=== PATIENT | male | born 1950 | race Caucasian/White ===

== ENCOUNTER 2016-10-16 13:24 | Emergency (ER) | payer OTHER ==
[~2016-10-16] VITALS: Ht 180.3 cm; Wt 70.3 kg
[~2016-10-16 13:24] MED LIST: AMBIEN10 M1 PO; AMBIEN10 MG PO; ASPIRIN81 M2 PO; AURALGAN 14 ML14 ML OT; CARDURA2 MG PO; CARVEDILOL6.25 MG PO; COGENTIN PO; COGENTIN1 MG PO; DARVOCET A500 51 TAB PO; DEPAKOTE500 M1 PO; EFFEXOR XR75 MG PO; FLEXERIL10 M1 PO; HALDOL5 M1 PO; HALDOL5 MG PO; HYDROCODONE BIT1 T43 PO; KLONOPIN1 M1 PO; KLONOPIN1 MG PO; MOTRIN600 M2 PO; NEURONTIN300 MG PO; SEROQUEL200 MG PO; SEROQUEL400 MG PO; SINGULAIR10 MG PO; TRAMADOL50 MG PO; WELLBUTRIN XL300 MG PO; WELLBUTRIN100 MG PO
[2016-10-16 13:38] VITALS: BP 93/69
--- NOTE | 2016-10-16 14:00 | NUR ---
PT AMBULATED TO BED 3.
--- NOTE | 2016-10-16 14:05 | NUR ---
PATIENT PRESENTS TO ED WITH C/O GERARD LEG PAIN . PT STATES THE PAIN STARTED 1 MONTH AGO AND HAS NOT DISSIPATED. PT DENIES ANY RECENT FALL OR TRAUMA. HX ASTHMA . DENIES N/V/D; SKIN IS PINK/WARM/DRY; AAOX4 WITH EVEN AND STEADY GAIT; LUNGS CLEAR BL; HR EVEN AND REGULAR; PT DENIES ANY FEVER, CP, SOB, OR COUGH AT THIS TIME; PATIENT STATES PAIN OF 7/10 AT THIS TIME; VSS; PATIENT POSITIONED FOR COMFORT; HOB ELEVATED; BEDRAILS UP X2; BED DOWN. ER MD MADE AWARE OF PT STATUS.
--- NOTE | 2016-10-16 14:45 | NUR ---
Jered AT BEDSIDE.
[2016-10-16] MEDS ORDERED: KETOROLAC 60 MG/2 ML VIAL IM ONE (15:20)
--- NOTE | 2016-10-16 15:32 | NUR ---
MEDICATION ADMINISTERED ORDERED.
[2016-10-16 16:24] VITALS: BP 103/74
== END 2016-10-16 16:25 | disposition home or self-care (01) ==
LOC: MED 13:24
DX: M25.562 Pain in left knee (principal); M25.561 Pain in right knee; J45.909 Unspecified asthma, uncomplicated
CPT/HCPCS: 96372; 99283; J1885

== ENCOUNTER 2017-10-20 01:15 | Emergency (ER) | payer OTHER ==
[~2017-10-20] VITALS: Ht 180.3 cm; Wt 68.0 kg
[~2017-10-20 01:15] MED LIST changes: -AMBIEN10 M1 PO; -AMBIEN10 MG PO; +ASPI-1271 PO; -ASPIRIN81 M2 PO; -AURALGAN 14 ML14 ML OT; -CARDURA2 MG PO; +CARV6.252 PO; -CARVEDILOL6.25 MG PO; -COGENTIN PO; -COGENTIN1 MG PO; -DARVOCET A500 51 TAB PO; -DEPAKOTE500 M1 PO; -EFFEXOR XR75 MG PO; -FLEXERIL10 M1 PO; -HALDOL5 M1 PO; -HALDOL5 MG PO; -HYDROCODONE BIT1 T43 PO; -KLONOPIN1 M1 PO; -KLONOPIN1 MG PO; -MOTRIN600 M2 PO; -NEURONTIN300 MG PO; -SEROQUEL200 MG PO; -SEROQUEL400 MG PO; -SINGULAIR10 MG PO; -TRAMADOL50 MG PO; -WELLBUTRIN XL300 MG PO; -WELLBUTRIN100 MG PO
--- NOTE | 2017-10-20 01:15 | NUR ---
0111- PT JONNY BARROSOS. TAKEN TO BED 2
[2017-10-20 01:17] VITALS: BP 137/81
--- NOTE | 2017-10-20 01:25 | NUR ---
PT.URINATES 1000ML
--- NOTE | 2017-10-20 01:33 | NUR ---
Dr. Murillo evaluating patient.
--- NOTE | 2017-10-20 01:36 | NUR ---
67Y/M PT. BIBA TO ED FROM [facility] WITH C/O EPISODE OF ANXIETY. PT. STATES HAD NIGHTMARE AND FOUND HIM SELF ON THE FLOOR. HX. ASTHMA, HTN, SCHIZOPRENIA. AAO X4, UNABLE TO AMBULATED AT THIS TIME. RESPIRATIONS RA, EVEN AND UNLABORED, BL LUNG CLEAR. SKIN WARM AND DRY, NO APPARENT INJURY. PT. STATES BAD ROBLES 03/06. VSS, ER MADE AWARE OF PT. STATUS.
[2017-10-20] MEDS ORDERED: ACETAMINOPHEN 325 MG TAB PO ONE (01:50)
--- NOTE | 2017-10-20 03:00 | NUR ---
Patient appears to be resting comfortably in bed. Vital Signs within normal limits. Respirations even and unlabored.
--- NOTE | 2017-10-20 03:37 | NUR ---
Patient discharged with v/s stable. Written and verbal after care instructions given and explained. Patient alert, oriented and verbalized understanding of instructions. Ambulatory with steady gait. All questions addressed prior to discharge. ID band removed. Patient advised to follow up with PMD. Rx of KEFLEX 500 MG given. Patient educated on indication of medication including possible reaction and side effects. Opportunity to ask questions provided and answered.
[2017-10-20 03:40] VITALS: BP 128/78
== END 2017-10-20 03:37 | disposition home or self-care (01) ==
LOC: MED 01:15
DX: S09.90XA Unspecified injury of head, initial encounter (principal); N39.0 Urinary tract infection, site not specified; J45.909 Unspecified asthma, uncomplicated; Z79.899 Other long term (current) drug therapy; W06.XXXA Fall from bed, initial encounter; Y93.89 Activity, other specified; Y92.89 Other specified places as the place of occurrence of the external cause; Y99.8 Other external cause status
CPT/HCPCS: 70450; 81002; 99284

== ENCOUNTER 2017-11-24 05:15 | Inpatient (IN) | payer OTHER ==
[~2017-11-24] VITALS: Ht 180.3 cm; Wt 68.0 kg
--- NOTE | 2017-11-24 05:15 | NUR ---
BIBA TO ER BED 4
--- NOTE | 2017-11-24 05:15 | NUR ---
67/M BIBA W C/O SOB AND PRODUCTIVE COUGH X5 DAYS. PT ARRIVED ON NRB MASK SATS 99%. PT ABLE TO SPEAK AT FULL LENGTH WITHOUT DIFFICULTIES, DENIES CP. ALL LUNG SOUNDS CBTA BUT DIMINSHED AT BASES, 18RR EVEN AND UNLABORED AT THIS TIME. HOB ELEVATED. PMH: SCHIZOAFFECTIVE, CHILDHOOD ASTHMA, REPORTS TO HAVE BEEN TAKING ROBITUSSIN WITHOUT RELIEF. Addendum: 11/24/17 at 0540 by CLARISSE DENIES FEVER/CHILLS
[2017-11-24 05:22] VITALS: BP 125/70
[2017-11-24 05:39] LABS: BASOPHILS # (AUTO) 0.1 K/uL (0.00-0.22); BASOPHILS % (AUTO) 0.8 % (0.0-2.0)
[2017-11-24 05:43] LABS: EOSINOPHILS # (AUTO) 0.2 K/uL (0-0.4); EOSINOPHILS % (AUTO) 1.2 % (0.0-4.0); HEMATOCRIT 32.2 % (36-52); HEMOGLOBIN 10.4 g/dL (12.0-18.0); LYMPHOCYTES # (AUTO) 1.5 K/uL (2.0-11.5); LYMPHOCYTES % (AUTO) 10.3 % (20.5-51.1); MEAN CORPUSCULAR HEMOGLOBIN 29 pg (27-31); MEAN CORPUSCULAR HGB CONC 32 g/dL (33-37); MEAN CORPUSCULAR VOLUME 88.2 fL (80-94); MONOCYTES # (AUTO) 0.9 K/uL (0.8-1.0); NEUTROPHILS # (AUTO) 11.8 K/uL (1.8-7.7); NEUTROPHILS % (AUTO) 81.7 % (42.2-75.2); PLATELET COUNT (AUTO) 635 K/uL (140-450); RED BLOOD CELL COUNT(AUTO) 3.65 MIL/uL (4.20-6.10); RED CELL DISTRIBUTION WIDTH 15.3 % (11.6-13.7)
[2017-11-24] MEDS ORDERED: ALBUTEROL SULFATE/IPRATROPIU 3 ML SOL IH ONE (05:50)
[2017-11-24 06:00] LABS: ANION GAP 10.8 (8-16); CARBON DIOXIDE 29.5 mmol/L (21-32); CREATININE 0.9 mg/dL (0.7-1.3); POTASSIUM 4.3 mmol/L (3.5-5.1); TOTAL BILIRUBIN 0.3 mg/dL (0.0-1.0); WHITE BLOOD COUNT (AUTO) 14.4 K/uL (4.8-10.8)
[2017-11-24 06:01] LABS: ALBUMIN 2.6 g/dL (3.4-5.0)
[2017-11-24] MEDS ORDERED: VANCOMYCIN 1,000 MG in DEXTROSE 5% 250 ML IV ONE (06:45)
[2017-11-24] MEDS ORDERED: LEVOFLOXACIN 750 MG/D5W PREMIX 150 ML IV ONE (06:45)
[2017-11-24] MEDS ORDERED: VANCOMYCIN 1,000 MG VIAL ONE (06:53)
--- NOTE | 2017-11-24 07:14 | NUR ---
Pt report given to FIDE GOMEZ. Transfer of care at this time.
--- NOTE | 2017-11-24 07:15 | NUR ---
RECEIVED REPORT FROM JASON MANZANO. PT. IN BED RESTING COMFORTABLY, RR EVEN AND UNLABORED, AAOX4. PROVIDED WATER AND A JUICE. UNABLE TO PROVIDE URINE AT THIS TIME. WILL CONTINUE TO MONITOR.
[2017-11-24] MEDS ORDERED: ONDANSETRON 4 MG/2 ML VIAL IVP PRN (08:00)
[2017-11-24] MEDS ORDERED: HYDROcodone/APAP 5/325 MG 1 TAB TAB PO PRN (08:00)
[2017-11-24] MEDS ORDERED: ACETAMINOPHEN 325 MG TAB PO PRN (08:00)
[2017-11-24] MEDS ORDERED: ALBUTEROL 0.083% 2.5 MG/3 ML NEBU IH PRN (08:00)
[2017-11-24] MEDS ORDERED: MORPHINE SULFATE 4 MG/ML SYR IVP ONE (08:30)
--- NOTE | 2017-11-24 09:05 | NUR ---
Patient will be admitted to care of [facility] . Admited to MED/ SURG . Will go to room 119 B . Belongings list completed. Report to JASON REGALADO .
--- NOTE | 2017-11-24 09:30 | NUR ---
PT ADMITTED TO [facility]. BEDSIDE REPORT GIVEN BY ER NURSE FIDE. PT IS AWAKE AND ORIENTED X4. INTRODUCED SELF AND UPDATED BOARD. PT ABLE TO STATED PAST MEDICAL HX. DENIES CARDIAC DISORDERS. STATED CHILDHOOD ASTHMA AND HE HAS SCHIZOAFFECTIVE DISORDER. STATED HE LIVES AT [facility]. LUNG SOUNDS DIMINISHED ON ANTERIOR AND POSTERIOR. O2 SAT 97% ON RA. PT WITH NON-PRODUCTIVE COUGH. STATED HE COUGHED CLEAR PHLEGM WITH SALIVA BEFORE HE WAS BROUGHT IN. NO SOB. NO SIGNS OF DISTRESS. PT DENIES PAIN. SKIN INTACT. ORIENTED PT TO CALL LIGHT AND BATHROOM. VERBALIZED UNDERSTANDING. CALL LIGHT WITHIN REACH. BED IN LOW POSITION, WHEELS LOCKED. WILL CONTINUE TO MONITOR.
[2017-11-24 10:21] VITALS: BP 120/70
[2017-11-24] MEDS: ECOTRIN 81 MG TABEC PO SCH (10:45)
[2017-11-24] MEDS: CARVEDILOL 6.25 MG TAB PO SCH ×2 (10:45→21:18)
[2017-11-24] MEDS: ENOXAPARIN 40 MG/0.4 ML SYR SUBQ SCH (10:46)
[2017-11-24] MEDS: LACTATED RINGERS 1,000 ML IV SCH ×2 (10:53→21:18)
--- NOTE | 2017-11-24 11:26 | NUR ---
PATIENT HAS BEEN SCREENED AND CATEGORIZED LOW NUTRITION RISK. PATIENT WILL BE SEEN WITHIN 7 DAYS OF ADMISSION. 12/01/[address]
--- NOTE | 2017-11-24 12:30 | NUR ---
CHECKED ON PT IN ROOM. SLEEPING WITH VISIBLE RESPIRATIONS. NO SIGNS OF DISTRESS. CALL LIGHT WITHIN REACH. BED IN LOW POSITION. WILL CONTINUE TO MONITOR.
[2017-11-24] MEDS: HYDROcodone/APAP 5/325 MG 1 TAB TAB PO PRN (15:57)
[2017-11-24 16:00] VITALS: BP 135/70
--- NOTE | 2017-11-24 16:00 | NUR ---
PT ADMINISTERED NORCO AT THIS TIME. PT COMPLAINED OF RT.SIDE CHEST PAIN DUE TO COUGHING. DRY COUGHING. MEDICATED WITH NORCO AT THIS TIME. WILL CONTINUE TO MONITOR. PT STABLE. SAFETY MEASURE IN PLACE. CALL LIGHT WITHIN PT'S REACH WILL REASSESS PAIN.
[2017-11-24 16:04] LABS: APPEARANCE,URINE CLEAR (CLEAR); BILIRUBIN,URINE NEGATIVE (NEGATIVE); BLOOD, URINE NEGATIVE (NEGATIVE); COLOR,URINE YELLOW (YELLOW); LEUKOCYTE ESTERASE ,URINE NEGATIVE (NEGATIVE); NITRITE, URINE POSITIVE (NEGATIVE); UGLUCOSE NEGATIVE (NEGATIVE)
[2017-11-24 16:14] LABS: BARBITURATE, URINE NEG. ng/ml (NEG <=200); BENZODIAZEPINE, URINE NEG. ng/mL (NEG <=200); CANNABINOID, URINE NEG. ng/mL (NEG <=50); COCAINE, URINE NEG. ng/mL (NEG <=300); OPIATE, URINE POS. ng/mL (NEG <=2000); PHENCYCLIDINE SCREEN,URINE NEG. ng/mL (NEG <=25)
[2017-11-24 16:15] LABS: RBC,URINE 0-5 (RARE) /HPF (0-5); WBC,URINE 6-15 (FEW) /HPF (0-5)
--- NOTE | 2017-11-24 18:00 | NUR ---
PT GETTING LIVER US DONE BY TECH. SIGNED CONSENT FORM FOR CT OF ABD/PELVIS AND CT CHEST WITH CONTRAST. PT VERBALIZED UNDERSTANDING. WILL CONTINUE TO MONITOR.
--- NOTE | 2017-11-24 19:25 | NUR ---
ENDORSED PT TO RESEARCH AND DEVELOPMENT MANAGER NURSE JOYA AT BEDSIDE FOR CONTINUITY OF CARE. PT IN STABLE CONDITION.
--- NOTE | 2017-11-24 19:30 | NUR ---
RECEIVED PT ON BED, AAOX4, VITAL SIGNS STABLE, DENIES ANY PAIN, ON O2 AT 3L/NC, UNABLE TO COLLECT SPUTUM AT THIS TIME, NON-PRODUCTIVE COUGH NOTED, MAINTAINED ON NPO FOR CT CHEST AND ABDOMEN TONIGHT, IVF INFUSING WELL, SAFETY MEASURES IN PLACE, CALL LIGHT WITHIN REACH.
[2017-11-25] VITALS: BP 123/72
--- NOTE | 2017-11-25 | NUR ---
PT SLEEPING, NASAL CANNULA NOT IN PLACE, VITAL SIGNS STABLE, SAT-92%, PUT BACK ON O2 AT 3L, SAT WENT BACK TO 98%, IVF INFUSING WELL, INSTRUCTED NPO AFTER MIDNIGHT, CONTINUE TO MONITOR CLOSELY.
--- NOTE | 2017-11-25 02:43 | NUR ---
ACCIDENTALLY PULLED OUT IV LINE WITH CANNULA INTACT, NEW IV LINE STARTED AT RT AC #20, RESUMED IVF, MAINTAINED ON NPO AFTER MIDNIGHT FOR CT CHEST AND ABDOMEN IN AM, MONITORED CLOSELY.
--- NOTE | 2017-11-25 06:00 | NUR ---
PT SLEEPING, EASILY AROUSABLE, NO SIGNS OF PAIN OR SOB NOTED, IVF INFUSING WELL, MAINTAINED ON NPO, AWARE TO COLLECT SPUTUM FOR TEST, SPECIMEN CONTAINER AT BEDSIDE.
[2017-11-25] MEDS: LACTATED RINGERS 1,000 ML IV SCH ×3 (06:52→23:58)
--- NOTE | 2017-11-25 07:20 | NUR ---
RECEIVED PATIENT REPORT AT BEDSIDE. PATIENT AWAKE, ALERT AND ORIENTED. PATIENT ON ROOM AIR. NO SOB. PATIENT COUGHS INTERMITTENTLY. PATIENT GIVEN A SAMPLE CUP FOR SPUTUM COLLECTION. FALL PRECAUTIONS IN PLACE. WILL CONTINUE TO MONITOR
--- NOTE | 2017-11-25 07:20 | NUR ---
PT AWAKE, NO SIGNS OF DISTRESS, REPORT GIVEN TO JASON LIVE FOR CONTINUITY OF CARE.
[2017-11-25 08:00] VITALS: BP 133/76
[2017-11-25 09:43] LABS: BASOPHILS # (AUTO) 0.1 K/uL (0.00-0.22); BASOPHILS % (AUTO) 0.8 % (0.0-2.0); EOSINOPHILS # (AUTO) 0.1 K/uL (0-0.4); EOSINOPHILS % (AUTO) 0.9 % (0.0-4.0); HEMATOCRIT 32.5 % (36-52); HEMOGLOBIN 10.8 g/dL (12.0-18.0); LYMPHOCYTES # (AUTO) 1.5 K/uL (2.0-11.5); LYMPHOCYTES % (AUTO) 12.3 % (20.5-51.1); MEAN CORPUSCULAR HEMOGLOBIN 29 pg (27-31); MEAN CORPUSCULAR HGB CONC 33 g/dL (33-37); MEAN CORPUSCULAR VOLUME 88.1 fL (80-94); MONOCYTES # (AUTO) 0.7 K/uL (0.8-1.0); MONOCYTES % (AUTO) 5.9 % (1.7-9.3); NEUTROPHILS # (AUTO) 9.7 K/uL (1.8-7.7); NEUTROPHILS % (AUTO) 80.1 % (42.2-75.2); PLATELET COUNT (AUTO) 718 K/uL (140-450); RED BLOOD CELL COUNT(AUTO) 3.68 MIL/uL (4.20-6.10); RED CELL DISTRIBUTION WIDTH 15.1 % (11.6-13.7); WHITE BLOOD COUNT (AUTO) 12.2 K/uL (4.8-10.8)
[2017-11-25 10:14] LABS: ALBUMIN 2.4 g/dL (3.4-5.0); ANION GAP 10.6 (8-16); CARBON DIOXIDE 29.2 mmol/L (21-32); CREATININE 0.7 mg/dL (0.7-1.3); POTASSIUM 3.8 mmol/L (3.5-5.1); TOTAL BILIRUBIN 0.2 mg/dL (0.0-1.0)
[2017-11-25] MEDS: LEVOFLOXACIN 750 MG/D5W PREMIX 150 ML IV SCH (10:26)
[2017-11-25] MEDS: CARVEDILOL 6.25 MG TAB PO SCH ×2 (10:29→20:33)
[2017-11-25] MEDS: ECOTRIN 81 MG TABEC PO SCH (10:29)
--- NOTE | 2017-11-25 10:29 | NUR ---
ADMINISTERED SCHEDULED MEDICATIONS. PATIENT TOLERATED WELL
[2017-11-25] MEDS: ENOXAPARIN 40 MG/0.4 ML SYR SUBQ SCH (10:32)
--- NOTE | 2017-11-25 13:33 | NUR ---
PT WAS INSTRUCTED ON GIVING A SPUTUM SAMPLE AT THIS TIME HE IS UNABLE TO GIVE ONE I RETRY LATER
--- NOTE | 2017-11-25 14:20 | NUR ---
PATIENT AWAKE IN BED, WATCHING TELEVISION. NO S/S OF DISTRESS NOTED
[2017-11-25 16:00] VITALS: BP 157/87
[2017-11-25] MEDS: HYDROcodone/APAP 5/325 MG 1 TAB TAB PO PRN (17:44)
--- NOTE | 2017-11-25 18:30 | NUR ---
PATIENT IV PULLED OUT. NEW IV LINE INSERTED ON THE RIGHT FOREARM 22 GAUGE. IV LINE WRAPPED WITH SANTOS. PATIENT INSTRUCTED TO KEEP THE IV LINE IN PLACE.
--- NOTE | 2017-11-25 19:21 | NUR ---
PATIENT REPORT GIVEN AT BEDSIDE. PATIENT ENDORSED IN STABLE CONDITION
--- NOTE | 2017-11-25 19:22 | NUR ---
RECEIVED PT AWAKE ON BED EATING DINNER, NO SIGNS OF PAIN OR SOB NOTED, NOTED IV LINE OUT, CANNULA INTACT, PT DENIES PULLING IT OUT, NO BLEEDING TO SITE NOTED, WILL RESTART A NEW IV LINE, SAFETY MEASURES IN PLACE, CALL LIGHT WITHIN REACH.
--- NOTE | 2017-11-25 20:40 | NUR ---
DR LEE CAME IN TO SEE PT FOR INFECTIOUS DS CONSULT, NO NEW ORDER AT THIS TIME, NEW IV LINE INSERTED AT RT FA, IVF INFUSING WELL.
[2017-11-26] VITALS: BP 129/93
--- NOTE | 2017-11-26 | NUR ---
PT SLEEPING, EASILY AROUSABLE, VITAL SIGNS STABLE, DENIES ANY PAIN, NO SOB NOTED, IVF INFUSING WELL, CONTINUE TO MONITOR CLOSELY.
--- NOTE | 2017-11-26 04:00 | NUR ---
ROUNDS MADE, PT SLEEPING, NO SIGNS OF DISTRESS, MONITORED CLOSELY.
--- NOTE | 2017-11-26 07:20 | NUR ---
PT AWAKE, NO SIGNS OF DISTRESS, REPORT GIVEN TO JASON GRULLON FOR CONTINUITY OF CARE.
--- NOTE | 2017-11-26 07:25 | NUR ---
RECEIVED PT FROM GROUP EXERCISE CLASS INSTRUCTOR NURSE, PT IS AWAKE AND LYING ON THE BED WITH AN IV LINE AT RIGHT FOREARM G. 22, WITH LR RUNNING AT 75ML/HR. PT IS STABLE AND NO SIGN OF DISTRESS NOTED.
[2017-11-26 08:00] VITALS: BP 161/92
--- NOTE | 2017-11-26 08:05 | NUR ---
PT IS AWAKE AND VITAL SIGNS TAKEN, NO SIGN OF DISTRESS NOTED. WILL MONITOR.
--- NOTE | 2017-11-26 08:46 | NUR ---
DISCHARGE ORDER WAS PLACED BY DR. ROQUE FOR THE PT. ACKNOWLEDGED ORDER AND WILL FACILITATE DISCHARGE.
[2017-11-26] MEDS ORDERED: LEVO750T2 PO (08:47)
--- NOTE | 2017-11-26 09:00 | NUR ---
PT IS AWAKE AND LYING ON THE BED, IV FLUIDS STARTED AND MEDICATIONS GIVEN VIA IV PIGGY BACK. PT TOLERATED MEDICATION. WILL MONITOR.
[2017-11-26 09:44] LABS: BASOPHILS # (AUTO) 0.1 K/uL (0.00-0.22); BASOPHILS % (AUTO) 0.6 % (0.0-2.0); EOSINOPHILS # (AUTO) 0.1 K/uL (0-0.4); EOSINOPHILS % (AUTO) 0.8 % (0.0-4.0); HEMATOCRIT 32.4 % (36-52); HEMOGLOBIN 10.7 g/dL (12.0-18.0); LYMPHOCYTES # (AUTO) 1.5 K/uL (2.0-11.5); LYMPHOCYTES % (AUTO) 12.1 % (20.5-51.1); MEAN CORPUSCULAR HEMOGLOBIN 29 pg (27-31); MEAN CORPUSCULAR HGB CONC 33 g/dL (33-37); MEAN CORPUSCULAR VOLUME 87.5 fL (80-94); MONOCYTES # (AUTO) 0.7 K/uL (0.8-1.0); MONOCYTES % (AUTO) 5.3 % (1.7-9.3); NEUTROPHILS # (AUTO) 10.4 K/uL (1.8-7.7); NEUTROPHILS % (AUTO) 81.2 % (42.2-75.2); RED CELL DISTRIBUTION WIDTH 15.1 % (11.6-13.7); WHITE BLOOD COUNT (AUTO) 12.8 K/uL (4.8-10.8)
[2017-11-26] MEDS: CARVEDILOL 6.25 MG TAB PO SCH (09:45)
[2017-11-26] MEDS: ECOTRIN 81 MG TABEC PO SCH (09:45)
[2017-11-26] MEDS: ENOXAPARIN 40 MG/0.4 ML SYR SUBQ SCH (09:51)
[2017-11-26 09:53] LABS: PLATELET COUNT (AUTO) 746 K/uL (140-450)
[2017-11-26] MEDS: LEVOFLOXACIN 750 MG/D5W PREMIX 150 ML IV SCH (10:15)
[2017-11-26] MEDS: LACTATED RINGERS 1,000 ML IV SCH (10:15)
[2017-11-26 10:53] LABS: ALBUMIN 2.4 g/dL (3.4-5.0); ANION GAP 12.8 (8-16); CARBON DIOXIDE 27.6 mmol/L (21-32); CREATININE 0.7 mg/dL (0.7-1.3); POTASSIUM 4.4 mmol/L (3.5-5.1); TOTAL BILIRUBIN 0.3 mg/dL (0.0-1.0)
--- NOTE | 2017-11-26 12:11 | NUR ---
CALLED [facility] AND SPOKE TO GENEVIEVE REGARDING THE DISCHARGE OF THE PT. GENEVIEVE SAID THAT [facility] WILL BE THE ONE TO CODING TECHNICIAN THE PT AT AROUND 1500H TODAY AND WILL BE GOING BACK TO [facility]..
[2017-11-26] MEDS: HYDROcodone/APAP 5/325 MG 1 TAB TAB PO PRN (12:32)
[2017-11-26 15:08] LABS: HEPATITIS B SURFACE ANTIBODY Non Reactive (.)
--- NOTE | 2017-11-26 16:35 | NUR ---
DISCHARGED PT VIA WHEELCHAIR WITH TRANSPORT, IV LINE AND ARM BAND REMOVED. PT IS STABLE AT THIS TIME
== END 2017-11-26 16:35 | disposition home or self-care (01) | DRG 193 ==
LOC: MED 05:15 → MMU 07:58 → MTU 08:45
PROVIDERS: ADMIT Hospitalist; ATTEND Hospitalist
DX: J18.9 Pneumonia, unspecified organism (principal); J96.00 Acute respiratory failure, unspecified whether with hypoxia or hypercapnia; E43 Unspecified severe protein-calorie malnutrition; R78.81 Bacteremia; E88.09 Other disorders of plasma-protein metabolism, not elsewhere classified; R74.0 Nonspecific elevation of levels of transaminase and lactic acid dehydrogenase [LDH]; F20.9 Schizophrenia, unspecified; Z87.891 Personal history of nicotine dependence; K76.0 Fatty (change of) liver, not elsewhere classified; Z79.82 Long term (current) use of aspirin
CPT/HCPCS: 36415; 71045; 71270; 76705; 80053; 80305; 81001; 85025; 86704; 86706; 86803; 87040; 87070; 87081; 87086; 87186; 87205; 87340; 94640; 99285; J1650; J1956; J2270; J3370; J7030; J7120; J7620; Q0092; Q9967

== ENCOUNTER 2018-03-29 08:07 | Emergency (ER) | payer OTHER, MEDICAID ==
[~2018-03-29] VITALS: Ht 180.3 cm; Wt 67.1 kg
[~2018-03-29 08:07] MED LIST changes: +LEVO750T2 PO
[2018-03-29 08:16] VITALS: BP 117/65
--- NOTE | 2018-03-29 08:22 | NUR ---
Patient transferred to bed 5 via wheelchair by tech. RN evaluating patient at bedside.
--- NOTE | 2018-03-29 08:24 | NUR ---
AAO PT BEING EVALUATED BY DR NGUYEN AT BEDSIDE
--- NOTE | 2018-03-29 08:27 | NUR ---
C/O LT RIB PAIN WITH SOB S/P TRIP AND FALL ON THE SIDEWALK YESTERDAY; DENIES ALOC, ABRASIONS NOTED ON LT ELBOW, LT LATERAL KNEE WITH DIFFICULTY AMBULATING HX; DENIES RX; DENIES
[2018-03-29] MEDS ORDERED: NEOMYCIN/POLYMYXIN/BACITRACIN 0.9 GM/1 PKT TP ONE (08:30)
[2018-03-29] MEDS ORDERED: KETOROLAC 60 MG/2 ML VIAL IM ONE (08:30)
[2018-03-29] MEDS ORDERED: ACETAMINOPHEN EXTRA STRENGTH 500 MG TAB PO ONE (08:30)
--- NOTE | 2018-03-29 08:49 | NUR ---
RAD AT BEDSIDE
--- NOTE | 2018-03-29 09:12 | NUR ---
TALK TO ELROY AT [facility] FOR PICKUP; PER ELROY PT WILL BE PICKUP WITHIN AN HOUR, PT NOTIFIED, JUICE AND CRAKER PROVIDED.
[2018-03-29 09:35] VITALS: BP 122/57
--- NOTE | 2018-03-29 09:35 | NUR ---
Patient discharged with v/s stable. Written and verbal after care instructions given and explained. Patient alert, oriented and verbalized understanding of instructions. Wheel Chair Assisted with to car. All questions addressed prior to discharge. ID band removed. Patient advised to follow up with PMD. Rx of Ibuprofen given. Patient educated on indication of medication including possible reaction and side effects. Opportunity to ask questions provided and answered.
== END 2018-03-29 09:35 | disposition home or self-care (01) ==
LOC: MED 08:07
DX: S20.212A Contusion of left front wall of thorax, initial encounter (principal); S80.212A Abrasion, left knee, initial encounter; J45.909 Unspecified asthma, uncomplicated; Z79.899 Other long term (current) drug therapy; W18.39XA Other fall on same level, initial encounter; Y93.89 Activity, other specified; Y92.89 Other specified places as the place of occurrence of the external cause; Y99.8 Other external cause status
CPT/HCPCS: 71045; 90471; 90715; 96372; 99284; J1885

== ENCOUNTER 2018-06-21 09:32 | Emergency (ER) | payer OTHER ==
[~2018-06-21] VITALS: Ht 162.6 cm; Wt 67.6 kg
[2018-06-21 09:45] VITALS: BP 127/77
--- NOTE | 2018-06-21 09:45 | NUR ---
PT AMBULATES TO BED 3
--- NOTE | 2018-06-21 10:04 | NUR ---
C/O INTERMITTETN RT CHEST RADIATING TO RLQ PAIN X 1 WK; DENIES N/V/D, OR DIZZINESS . DENIES N/V/D; SKIN IS PINK/WARM/DRY; AAOX4 WITH EVEN AND STEADY GAIT; LUNGS CLEAR BL; HR EVEN AND REGULAR; PT DENIES ANY FEVER, SOB, OR COUGH AT THIS TIME; PATIENT STATES PAIN OF 8/10 AT THIS TIME; VSS; PATIENT POSITIONED FOR COMFORT; HOB ELEVATED; BEDRAILS UP X2; BED DOWN. ER MD MADE AWARE OF PT STATUS.
--- NOTE | 2018-06-21 10:26 | NUR ---
DR. LOGAN AT BEDSIDE TO ASSESS PT.
[2018-06-21 10:29] LABS: HEMATOCRIT 27.6 % (36-52); HEMOGLOBIN 9.2 g/dL (12.0-18.0); MEAN CORPUSCULAR HEMOGLOBIN 30 pg (27-31); MEAN CORPUSCULAR HGB CONC 33 g/dL (33-37); MEAN CORPUSCULAR VOLUME 90.2 fL (80-94); PLATELET COUNT (AUTO) 338 K/uL (140-450); RED BLOOD CELL COUNT(AUTO) 3.06 MIL/uL (4.20-6.10); RED CELL DISTRIBUTION WIDTH 12.5 % (11.6-13.7); WHITE BLOOD COUNT (AUTO) 17.4 K/uL (4.8-10.8)
[2018-06-21] MEDS ORDERED: ACETAMINOPHEN EXTRA STRENGTH 500 MG TAB PO ONE (10:30)
--- NOTE | 2018-06-21 10:31 | NUR ---
XRAY AT BEDSIDE
[2018-06-21 10:39] LABS: ANION GAP 11.5 (8-16); CARBON DIOXIDE 25.3 mmol/L (21-32); CREATININE 0.8 mg/dL (0.7-1.3); POTASSIUM 3.8 mmol/L (3.5-5.1)
[2018-06-21 10:45] LABS: ALBUMIN 2.7 g/dL (3.4-5.0); TOTAL BILIRUBIN 0.3 mg/dL (0.0-1.0)
[2018-06-21 10:46] LABS: BASOPHILS % (MANUAL) 0 % (0-2); EOSINOPHILS % (MANUAL) 0 % (0-4); LYMPHOCYTES % (MANUAL) 6 % (20-46); MONOCYTES % (MANUAL) 9 % (5-12)
[2018-06-21 11:15] VITALS: BP 125/75
--- NOTE | 2018-06-21 11:16 | NUR ---
Patient discharged with v/s stable. Written and verbal after care instructions given and explained. Patient alert, oriented and verbalized understanding of instructions. Ambulatory with steady gait. All questions addressed prior to discharge. ID band removed. Patient advised to follow up with PMD. Rx of TESSALON AND AZITHROMYCIN given. Patient educated on indication of medication including possible reaction and side effects. Opportunity to ask questions provided and answered.
== END 2018-06-21 11:16 | disposition home or self-care (01) ==
LOC: MED 09:32
DX: J18.9 Pneumonia, unspecified organism (principal); J45.909 Unspecified asthma, uncomplicated; Z90.89 Acquired absence of other organs; Z79.899 Other long term (current) drug therapy; Z79.82 Long term (current) use of aspirin
CPT/HCPCS: 36415; 71045; 80053; 82550; 82553; 84484; 85025; 99284

== ENCOUNTER 2018-08-09 05:53 | Inpatient (IN) | payer OTHER ==
[~2018-08-09] VITALS: Ht 180.3 cm; Wt 72.6 kg
[2018-08-09 06:05] VITALS: BP 91/50
[2018-08-09] MEDS ORDERED: NACL 0.9% 1,000 ML IV ONE ×3 (06:10→06:55)
[2018-08-09] MEDS ORDERED: ASPIRIN 325 MG TAB PO ONE (06:40)
[2018-08-09] MEDS ORDERED: MORPHINE SULFATE 4 MG/ML SYR IVP ONE (06:40)
[2018-08-09 06:54] LABS: BASOPHILS % (AUTO) 0.2 % (0.0-2.0); EOSINOPHILS # (AUTO) 0.1 K/uL (0-0.4); EOSINOPHILS % (AUTO) 0.6 % (0.0-4.0); HEMATOCRIT 29.9 % (36-52); HEMOGLOBIN 9.9 g/dL (12.0-18.0); LYMPHOCYTES # (AUTO) 0.9 K/uL (2.0-11.5); LYMPHOCYTES % (AUTO) 6.2 % (20.5-51.1); MEAN CORPUSCULAR HEMOGLOBIN 30 pg (27-31); MEAN CORPUSCULAR HGB CONC 33 g/dL (33-37); MEAN CORPUSCULAR VOLUME 91.1 fL (80-94); MONOCYTES # (AUTO) 1.3 K/uL (0.8-1.0); MONOCYTES % (AUTO) 8.8 % (1.7-9.3); NEUTROPHILS # (AUTO) 12.4 K/uL (1.8-7.7); NEUTROPHILS % (AUTO) 84.2 % (42.2-75.2); PLATELET COUNT (AUTO) 202 K/uL (140-450); RED BLOOD CELL COUNT(AUTO) 3.28 MIL/uL (4.20-6.10); RED CELL DISTRIBUTION WIDTH 14.1 % (11.6-13.7); WHITE BLOOD COUNT (AUTO) 14.8 K/uL (4.8-10.8)
[2018-08-09 07:13] LABS: ANION GAP 9.5 (8-16); CARBON DIOXIDE 25.4 mmol/L (21-32); CREATININE 1.6 mg/dL (0.7-1.3); POTASSIUM 3.9 mmol/L (3.5-5.1)
[2018-08-09 07:19] LABS: ALBUMIN 2.7 g/dL (3.4-5.0); TOTAL BILIRUBIN 0.3 mg/dL (0.0-1.0)
[2018-08-09] MEDS ORDERED: VANCOMYCIN 1,000 MG in DEXTROSE 5% 250 ML IV ONE (07:20)
[2018-08-09] MEDS ORDERED: ALBUTEROL SULFATE/IPRATROPIU 3 ML SOL IH ONE (07:20)
[2018-08-09] MEDS ORDERED: PIPERACILLIN/TAZOBACTAM 3.375 GM in DEXT 5% MINI-BAG PLUS 50 ML IV ONE (07:20)
[2018-08-09] MEDS ORDERED: DEXAMETHASONE 10 MG/ML VIAL IVP ONE (07:20)
[2018-08-09] MEDS ORDERED: AZITHROMYCIN 500 MG in DEXTROSE 5% 250 ML IV ONE (07:20)
[2018-08-09] MEDS ORDERED: NACL 0.9% 1,000 ML IV SCH (07:20)
[2018-08-09] MEDS ORDERED: VANCOMYCIN 1,000 MG VIAL ONE (08:01)
[2018-08-09] MEDS ORDERED: PIPERACILLIN/TAZOBACTAM 3.375 GM VIAL IV ONE (08:01)
[2018-08-09] MEDS ORDERED: AZITHROMYCIN 500 MG INJ VIAL IV ONE (08:01)
[2018-08-09 08:51] LABS: PROTHROMBIN TIME 11.3 secs (10.8-13.4)
[2018-08-09] MEDS ORDERED: ALBUTEROL SULFATE/IPRATROPIU 3 ML SOL IH PRN (08:55)
[2018-08-09] MEDS ORDERED: ACETAMINOPHEN 325 MG TAB PO PRN (08:55)
[2018-08-09] MEDS ORDERED: DOCUSATE SODIUM 100 MG GELCAP PO PRN (08:55)
[2018-08-09] MEDS ORDERED: ONDANSETRON 4 MG/2 ML VIAL IM/IVP PRN (08:55)
[2018-08-09 10:25] LABS: MAGNESIUM 1.4 mg/dL (1.8-2.4); PHOSPHORUS 3.1 mg/dL (2.5-4.9)
[2018-08-09 10:45] VITALS: BP 118/67
[2018-08-09 10:49] LABS: THYROID STIMULATING HORMONE 0.86 uIU/mL (0.34-3.74)
[2018-08-09] MEDS ORDERED: GABA300C PO (10:50)
[2018-08-09] MEDS ORDERED: IBUP-2213 PO (10:50)
[2018-08-09] MEDS ORDERED: CLON1TAB PO (10:50)
[2018-08-09] MEDS ORDERED: ASPI81CT89 PO (10:50)
[2018-08-09] MEDS ORDERED: DIPH25TA41 PO (10:50)
[2018-08-09] MEDS ORDERED: QUET400T PO (10:50)
[2018-08-09] MEDS ORDERED: LOSA50TA66 PO (10:50)
[2018-08-09] MEDS ORDERED: BUPR-10 PO (10:50)
[2018-08-09] MEDS ORDERED: FERR325E14 PO (10:50)
[2018-08-09] MEDS: HYDROcodone/APAP 5/325 MG 1 TAB TAB PO PRN ×2 (11:11→17:21)
[2018-08-09 11:12] LABS: BARBITURATE, URINE NEG. ng/ml (NEG <=200); BENZODIAZEPINE, URINE NEG. ng/mL (NEG <=200); CANNABINOID, URINE NEG. ng/mL (NEG <=50); COCAINE, URINE NEG. ng/mL (NEG <=300); OPIATE, URINE NEG. ng/mL (NEG <=2000); PHENCYCLIDINE SCREEN,URINE NEG. ng/mL (NEG <=25)
[2018-08-09] MEDS: NACL 0.9% 1,000 ML IV SCH (11:12)
[2018-08-09 11:18] LABS: APPEARANCE,URINE CLEAR (CLEAR); BILIRUBIN,URINE NEGATIVE (NEGATIVE); BLOOD, URINE NEGATIVE (NEGATIVE); COLOR,URINE YELLOW (YELLOW); LEUKOCYTE ESTERASE ,URINE NEGATIVE (NEGATIVE); NITRITE, URINE NEGATIVE (NEGATIVE); UGLUCOSE NEGATIVE (NEGATIVE)
[2018-08-09] MEDS ORDERED: SODIUM FERRIC GLUCONATE 125 MG in NACL 0.9% 100 ML IV SCH (11:30)
[2018-08-09 12:00] VITALS: BP 124/72
[2018-08-09] MEDS ORDERED: PIPERACILLIN/TAZOBACTAM 3.375 GM in DEXTROSE 5% 50 ML IV SCH (12:00)
[2018-08-09] MEDS: ALBUTEROL SULFATE/IPRATROPIU 3 ML SOL IH SCH ×2 (13:54→19:42)
[2018-08-09] MEDS: PIPER/TAZO 3.375GM/D5W PREMIX 50 ML IV SCH ×2 (14:34→21:43)
[2018-08-09 16:00] VITALS: BP 117/68
[2018-08-09 20:00] VITALS: BP 120/78
[2018-08-09] MEDS: FERROUS SULFATE 325 MG TABEC PO SCH (21:43)
[2018-08-09] MEDS: QUEtiapine FUMARATE 100 MG TAB PO SCH (21:44)
[2018-08-09] MEDS: clonazePAM 0.5 MG TAB PO SCH (21:45)
[2018-08-09] MEDS: buPROPion 100 MG TAB PO SCH (21:45)
[2018-08-09] MEDS: GABAPENTIN 300 MG CAP PO SCH (21:46)
[2018-08-09] MEDS: MAGNESIUM OXIDE 400 MG TAB PO SCH (21:46)
[2018-08-09] MEDS: ASCORBIC ACID 500 MG TAB PO SCH (21:52)
[2018-08-10] VITALS: BP 118/76
[2018-08-10] MEDS: PIPER/TAZO 3.375GM/D5W PREMIX 50 ML IV SCH ×4 (02:07→19:49)
[2018-08-10 05:56] VITALS: BP 132/76
[2018-08-10] MEDS: HYDROcodone/APAP 5/325 MG 1 TAB TAB PO PRN ×3 (06:01→19:49)
[2018-08-10 06:20] LABS: HEMATOCRIT 30.4 % (36-52); HEMOGLOBIN 9.9 g/dL (12.0-18.0); LYMPHOCYTES # (AUTO) 0.7 K/uL (2.0-11.5); LYMPHOCYTES % (AUTO) 4.8 % (20.5-51.1); MEAN CORPUSCULAR HEMOGLOBIN 30 pg (27-31); MEAN CORPUSCULAR HGB CONC 33 g/dL (33-37); MEAN CORPUSCULAR VOLUME 91.4 fL (80-94); MONOCYTES # (AUTO) 1.2 K/uL (0.8-1.0); MONOCYTES % (AUTO) 7.9 % (1.7-9.3); NEUTROPHILS # (AUTO) 13.2 K/uL (1.8-7.7); NEUTROPHILS % (AUTO) 87.3 % (42.2-75.2); PLATELET COUNT (AUTO) 233 K/uL (140-450); RED BLOOD CELL COUNT(AUTO) 3.32 MIL/uL (4.20-6.10); RED CELL DISTRIBUTION WIDTH 14.5 % (11.6-13.7); WHITE BLOOD COUNT (AUTO) 15.1 K/uL (4.8-10.8)
[2018-08-10 07:38] LABS: MAGNESIUM 1.6 mg/dL (1.8-2.4); PHOSPHORUS 3.3 mg/dL (2.5-4.9)
[2018-08-10 07:39] LABS: ANION GAP 14.5 (8-16); CARBON DIOXIDE 22.4 mmol/L (21-32); POTASSIUM 3.9 mmol/L (3.5-5.1)
[2018-08-10 08:00] VITALS: BP 143/87
[2018-08-10] MEDS: GABAPENTIN 300 MG CAP PO SCH ×2 (08:24→21:12)
[2018-08-10] MEDS: clonazePAM 0.5 MG TAB PO SCH ×2 (08:24→21:11)
[2018-08-10] MEDS: LACTOBACILLUS RHAMNOSUS GG 1 EACH CAP PO SCH (08:24)
[2018-08-10] MEDS: buPROPion 100 MG TAB PO SCH ×2 (08:25→21:09)
[2018-08-10] MEDS: LOSARTAN 50 MG TAB PO SCH (08:25)
[2018-08-10] MEDS: ASPIRIN 81 MG TAB.CHEW PO SCH (08:26)
[2018-08-10] MEDS: ASCORBIC ACID 500 MG TAB PO SCH ×2 (08:26→21:12)
[2018-08-10] MEDS: FERROUS SULFATE 325 MG TABEC PO SCH ×2 (08:26→21:09)
[2018-08-10] MEDS: MAGNESIUM OXIDE 400 MG TAB PO SCH ×2 (08:27→21:09)
[2018-08-10] MEDS: ALBUTEROL SULFATE/IPRATROPIU 3 ML SOL IH SCH ×3 (08:55→19:19)
[2018-08-10] MEDS ORDERED: VANCOMYCIN PER PHARMACY MC PRN (09:15)
[2018-08-10] MEDS: NACL 0.9% 1,000 ML IV SCH (09:30)
[2018-08-10] MEDS: VANCOMYCIN 1GM/DEXT 5% PREMIX 200 ML IV SCH ×2 (10:35→21:17)
[2018-08-10 12:00] VITALS: BP 121/69
[2018-08-10] MEDS: CHLORHEXADINE GLUC 2% CLOTH TP SCH (13:55)
[2018-08-10] MEDS: MUPIROCIN CA NASAL 2% 1GM TUBE NS SCH (13:55)
[2018-08-10 16:00] VITALS: BP 152/90
[2018-08-10] MEDS ORDERED: FLUTICASONE NASAL 50 MCG/ACTUATION 16 GM BTL NS SCH (16:45)
[2018-08-10 19:54] VITALS: BP 148/89
[2018-08-10] MEDS: QUEtiapine FUMARATE 100 MG TAB PO SCH (21:10)
[2018-08-10] MEDS: guaiFENesin 600 MG TABER PO SCH (21:11)
[2018-08-11 00:44] VITALS: BP 117/81
[2018-08-11] MEDS: PIPER/TAZO 3.375GM/D5W PREMIX 50 ML IV SCH ×4 (01:33→20:45)
[2018-08-11 04:00] VITALS: BP 130/78
[2018-08-11] MEDS: NACL 0.9% 1,000 ML IV SCH (06:39)
[2018-08-11 06:43] LABS: BASOPHILS % (AUTO) 0.3 % (0.0-2.0); EOSINOPHILS # (AUTO) 0.1 K/uL (0-0.4); EOSINOPHILS % (AUTO) 1.2 % (0.0-4.0); HEMATOCRIT 29.2 % (36-52); HEMOGLOBIN 9.7 g/dL (12.0-18.0); LYMPHOCYTES # (AUTO) 1.7 K/uL (2.0-11.5); LYMPHOCYTES % (AUTO) 16.5 % (20.5-51.1); MEAN CORPUSCULAR HEMOGLOBIN 30 pg (27-31); MEAN CORPUSCULAR HGB CONC 33 g/dL (33-37); MEAN CORPUSCULAR VOLUME 91.2 fL (80-94); MONOCYTES % (AUTO) 10.2 % (1.7-9.3); NEUTROPHILS # (AUTO) 7.4 K/uL (1.8-7.7); NEUTROPHILS % (AUTO) 71.8 % (42.2-75.2); PLATELET COUNT (AUTO) 291 K/uL (140-450); RED CELL DISTRIBUTION WIDTH 14.8 % (11.6-13.7); WHITE BLOOD COUNT (AUTO) 10.3 K/uL (4.8-10.8)
[2018-08-11] MEDS ORDERED: MORPHINE SULFATE 4 MG/ML SYR IVP SCH (06:45)
[2018-08-11] MEDS ORDERED: BISACODYL 10 MG SUPP RC SCH (06:45)
[2018-08-11 06:55] LABS: CARBON DIOXIDE 26.7 mmol/L (21-32); POTASSIUM 3.7 mmol/L (3.5-5.1)
[2018-08-11 07:01] LABS: MAGNESIUM 1.2 mg/dL (1.8-2.4); PHOSPHORUS 2.8 mg/dL (2.5-4.9)
[2018-08-11 08:00] VITALS: BP 154/83
[2018-08-11] MEDS: ALBUTEROL SULFATE/IPRATROPIU 3 ML SOL IH SCH ×3 (08:17→20:05)
[2018-08-11 08:23] LABS: FOLIC ACID 7.1 ng/mL (>3.0)
[2018-08-11] MEDS: FLUTICASONE NASAL 50 MCG/ACTUATION 16 GM BTL NS SCH (08:50)
[2018-08-11] MEDS: MAGNESIUM OXIDE 400 MG TAB PO SCH (08:51)
[2018-08-11] MEDS: ASCORBIC ACID 500 MG TAB PO SCH ×2 (08:52→20:56)
[2018-08-11] MEDS: guaiFENesin 600 MG TABER PO SCH ×2 (08:52→20:56)
[2018-08-11] MEDS: LOSARTAN 50 MG TAB PO SCH (08:52)
[2018-08-11] MEDS: LACTOBACILLUS RHAMNOSUS GG 1 EACH CAP PO SCH (08:52)
[2018-08-11] MEDS: ASPIRIN 81 MG TAB.CHEW PO SCH (08:53)
[2018-08-11] MEDS: FERROUS SULFATE 325 MG TABEC PO SCH ×2 (08:53→20:56)
[2018-08-11] MEDS: buPROPion 100 MG TAB PO SCH ×2 (08:53→20:52)
[2018-08-11] MEDS: GABAPENTIN 300 MG CAP PO SCH ×2 (08:54→20:56)
[2018-08-11] MEDS: clonazePAM 0.5 MG TAB PO SCH ×2 (08:57→20:55)
[2018-08-11] MEDS: MAG SULF 2000 MG/WATER PREMIX 100 ML IV SCH ×2 (10:02→11:20)
[2018-08-11 12:00] VITALS: BP 130/75
[2018-08-11] MEDS: VANCOMYCIN 1GM/DEXT 5% PREMIX 200 ML IV SCH ×2 (12:58→22:53)
[2018-08-11] MEDS: CHLORHEXADINE GLUC 2% CLOTH TP SCH (13:49)
[2018-08-11] MEDS: MUPIROCIN CA NASAL 2% 1GM TUBE NS SCH (13:49)
[2018-08-11 16:00] VITALS: BP 143/84
[2018-08-11 20:00] VITALS: BP 136/75
[2018-08-11] MEDS: QUEtiapine FUMARATE 100 MG TAB PO SCH (20:57)
[2018-08-12] VITALS: BP 129/67
[2018-08-12] MEDS: PIPER/TAZO 3.375GM/D5W PREMIX 50 ML IV SCH ×4 (02:00→20:25)
[2018-08-12] MEDS: HYDROcodone/APAP 5/325 MG 1 TAB TAB PO PRN ×2 (03:38→12:37)
[2018-08-12] MEDS: NACL 0.9% 1,000 ML IV SCH (05:30)
[2018-08-12 06:58] LABS: BASOPHILS % (AUTO) 0.3 % (0.0-2.0); EOSINOPHILS # (AUTO) 0.2 K/uL (0-0.4); EOSINOPHILS % (AUTO) 1.8 % (0.0-4.0); HEMATOCRIT 29.3 % (36-52); HEMOGLOBIN 9.8 g/dL (12.0-18.0); LYMPHOCYTES # (AUTO) 1.6 K/uL (2.0-11.5); LYMPHOCYTES % (AUTO) 13.7 % (20.5-51.1); MEAN CORPUSCULAR HEMOGLOBIN 30 pg (27-31); MEAN CORPUSCULAR HGB CONC 33 g/dL (33-37); MEAN CORPUSCULAR VOLUME 90.1 fL (80-94); MONOCYTES % (AUTO) 16.8 % (1.7-9.3); NEUTROPHILS # (AUTO) 7.9 K/uL (1.8-7.7); NEUTROPHILS % (AUTO) 67.4 % (42.2-75.2); PLATELET COUNT (AUTO) 321 K/uL (140-450); RED BLOOD CELL COUNT(AUTO) 3.26 MIL/uL (4.20-6.10); RED CELL DISTRIBUTION WIDTH 14.6 % (11.6-13.7); WHITE BLOOD COUNT (AUTO) 11.8 K/uL (4.8-10.8)
[2018-08-12] MEDS: ALBUTEROL SULFATE/IPRATROPIU 3 ML SOL IH SCH ×3 (07:00→19:00)
[2018-08-12] MEDS ORDERED: BISACODYL 10 MG SUPP RC SCH (07:00)
[2018-08-12] MEDS ORDERED: MORPHINE SULFATE 4 MG/ML SYR IVP SCH (07:15)
[2018-08-12 07:40] LABS: ANION GAP 11.9 (8-16); CARBON DIOXIDE 27.1 mmol/L (21-32); CREATININE 0.8 mg/dL (0.7-1.3)
[2018-08-12 07:52] LABS: MAGNESIUM 1.5 mg/dL (1.8-2.4); PHOSPHORUS 2.9 mg/dL (2.5-4.9)
[2018-08-12 08:00] VITALS: BP 143/86
[2018-08-12] MEDS: LOSARTAN 50 MG TAB PO SCH (08:26)
[2018-08-12] MEDS: guaiFENesin 600 MG TABER PO SCH ×2 (08:26→20:26)
[2018-08-12] MEDS: buPROPion 100 MG TAB PO SCH ×2 (08:27→20:25)
[2018-08-12] MEDS: GABAPENTIN 300 MG CAP PO SCH ×2 (08:27→20:26)
[2018-08-12] MEDS: ASCORBIC ACID 500 MG TAB PO SCH ×2 (08:27→20:25)
[2018-08-12] MEDS: ASPIRIN 81 MG TAB.CHEW PO SCH (08:27)
[2018-08-12] MEDS: LACTOBACILLUS RHAMNOSUS GG 1 EACH CAP PO SCH (08:27)
[2018-08-12] MEDS: FERROUS SULFATE 325 MG TABEC PO SCH ×2 (08:28→20:26)
[2018-08-12] MEDS: clonazePAM 0.5 MG TAB PO SCH ×2 (08:31→20:26)
[2018-08-12] MEDS: FLUTICASONE NASAL 50 MCG/ACTUATION 16 GM BTL NS SCH (08:35)
[2018-08-12] MEDS: SODIUM CHLORIDE 1 GM TAB PO SCH ×2 (09:00→09:23)
[2018-08-12] MEDS ORDERED: MAG SULF 2000 MG/WATER PREMIX 50 ML IV SCH (09:00)
[2018-08-12] MEDS: VANCOMYCIN 1,250 MG in DEXTROSE 5% 250 ML IV SCH ×2 (11:02→21:04)
[2018-08-12] MEDS: MUPIROCIN CA NASAL 2% 1GM TUBE NS SCH (15:06)
[2018-08-12] MEDS: CHLORHEXADINE GLUC 2% CLOTH TP SCH (15:07)
[2018-08-12 16:00] VITALS: BP 156/89
[2018-08-12] MEDS: QUEtiapine FUMARATE 100 MG TAB PO SCH (20:25)
[2018-08-13] VITALS: BP 128/73
[2018-08-13] MEDS: PIPER/TAZO 3.375GM/D5W PREMIX 50 ML IV SCH ×3 (01:14→18:17)
[2018-08-13] MEDS: NACL 0.9% 1,000 ML IV SCH (01:14)
[2018-08-13] MEDS: HYDROcodone/APAP 5/325 MG 1 TAB TAB PO PRN ×4 (02:16→18:17)
[2018-08-13 06:37] LABS: BASOPHILS % (AUTO) 0.4 % (0.0-2.0); EOSINOPHILS # (AUTO) 0.2 K/uL (0-0.4); EOSINOPHILS % (AUTO) 1.5 % (0.0-4.0); HEMATOCRIT 27.8 % (36-52); HEMOGLOBIN 9.3 g/dL (12.0-18.0); LYMPHOCYTES # (AUTO) 1.5 K/uL (2.0-11.5); LYMPHOCYTES % (AUTO) 10.9 % (20.5-51.1); MEAN CORPUSCULAR HEMOGLOBIN 30 pg (27-31); MEAN CORPUSCULAR HGB CONC 33 g/dL (33-37); MEAN CORPUSCULAR VOLUME 90.1 fL (80-94); MONOCYTES # (AUTO) 2.1 K/uL (0.8-1.0); MONOCYTES % (AUTO) 15.2 % (1.7-9.3); NEUTROPHILS # (AUTO) 9.7 K/uL (1.8-7.7); PLATELET COUNT (AUTO) 297 K/uL (140-450); RED BLOOD CELL COUNT(AUTO) 3.08 MIL/uL (4.20-6.10); RED CELL DISTRIBUTION WIDTH 14.3 % (11.6-13.7); WHITE BLOOD COUNT (AUTO) 13.5 K/uL (4.8-10.8)
[2018-08-13] MEDS ORDERED: FUROSEMIDE 40 MG/4 ML VIAL IVP ONE (07:15)
[2018-08-13] MEDS: ALBUTEROL SULFATE/IPRATROPIU 3 ML SOL IH SCH ×3 (07:16→19:00)
[2018-08-13 08:00] VITALS: BP 122/62
[2018-08-13] MEDS ORDERED: FUROSEMIDE 40 MG/4 ML VIAL IVP SCH (08:00)
[2018-08-13] MEDS: ASPIRIN 81 MG TAB.CHEW PO SCH (08:19)
[2018-08-13] MEDS: LACTOBACILLUS RHAMNOSUS GG 1 EACH CAP PO SCH (08:19)
[2018-08-13] MEDS: buPROPion 100 MG TAB PO SCH ×2 (08:19→20:06)
[2018-08-13] MEDS: GABAPENTIN 300 MG CAP PO SCH ×2 (08:19→20:05)
[2018-08-13] MEDS: LOSARTAN 50 MG TAB PO SCH (08:19)
[2018-08-13] MEDS: ASCORBIC ACID 500 MG TAB PO SCH ×2 (08:20→20:05)
[2018-08-13] MEDS: guaiFENesin 600 MG TABER PO SCH ×2 (08:20→20:04)
[2018-08-13] MEDS: FERROUS SULFATE 325 MG TABEC PO SCH ×2 (08:20→20:06)
[2018-08-13] MEDS: FLUTICASONE NASAL 50 MCG/ACTUATION 16 GM BTL NS SCH (08:21)
[2018-08-13] MEDS: clonazePAM 0.5 MG TAB PO SCH ×2 (08:22→20:06)
[2018-08-13] MEDS ORDERED: SODIUM CHLORIDE 1 GM TAB PO SCH (09:00)
[2018-08-13] MEDS: VANCOMYCIN 1,250 MG in DEXTROSE 5% 250 ML IV SCH ×2 (10:04→22:29)
[2018-08-13 10:40] LABS: CARBON DIOXIDE 25.8 mmol/L (21-32); CREATININE 0.8 mg/dL (0.7-1.3); POTASSIUM 3.8 mmol/L (3.5-5.1)
[2018-08-13 10:48] LABS: MAGNESIUM 1.5 mg/dL (1.8-2.4)
[2018-08-13] MEDS: MAG SULF 2000 MG/WATER PREMIX 100 ML IV SCH ×2 (13:16→14:42)
[2018-08-13] MEDS: CHLORHEXADINE GLUC 2% CLOTH TP SCH (13:17)
[2018-08-13] MEDS: MUPIROCIN CA NASAL 2% 1GM TUBE NS SCH (13:17)
[2018-08-13 16:00] VITALS: BP 109/62
[2018-08-13] MEDS: QUEtiapine FUMARATE 100 MG TAB PO SCH (20:04)
[2018-08-13] MEDS: SODIUM CHLORIDE 1 GM TAB PO SCH (20:06)
[2018-08-13] MEDS ORDERED: VANCOMYCIN PER PHARMACY MC PRN (21:20)
[2018-08-14] VITALS: BP 120/64
[2018-08-14] MEDS: NACL 0.9% 1,000 ML IV SCH (01:30)
[2018-08-14] MEDS: HYDROcodone/APAP 5/325 MG 1 TAB TAB PO PRN ×3 (02:01→14:18)
[2018-08-14 05:41] LABS: BASOPHILS % (AUTO) 0.2 % (0.0-2.0); EOSINOPHILS # (AUTO) 0.3 K/uL (0-0.4); EOSINOPHILS % (AUTO) 2.4 % (0.0-4.0); HEMATOCRIT 28.1 % (36-52); HEMOGLOBIN 9.1 g/dL (12.0-18.0); LYMPHOCYTES # (AUTO) 1.8 K/uL (2.0-11.5); MEAN CORPUSCULAR HEMOGLOBIN 30 pg (27-31); MEAN CORPUSCULAR HGB CONC 32 g/dL (33-37); MEAN CORPUSCULAR VOLUME 90.9 fL (80-94); MONOCYTES # (AUTO) 1.8 K/uL (0.8-1.0); NEUTROPHILS # (AUTO) 8.9 K/uL (1.8-7.7); NEUTROPHILS % (AUTO) 69.4 % (42.2-75.2); PLATELET COUNT (AUTO) 325 K/uL (140-450); RED BLOOD CELL COUNT(AUTO) 3.09 MIL/uL (4.20-6.10); RED CELL DISTRIBUTION WIDTH 14.6 % (11.6-13.7); WHITE BLOOD COUNT (AUTO) 12.8 K/uL (4.8-10.8)
[2018-08-14 06:05] LABS: ANION GAP 8.6 (8-16); CREATININE 0.9 mg/dL (0.7-1.3); POTASSIUM 3.6 mmol/L (3.5-5.1)
[2018-08-14 06:08] LABS: MAGNESIUM 1.9 mg/dL (1.8-2.4); PHOSPHORUS 3.2 mg/dL (2.5-4.9)
[2018-08-14] MEDS: ALBUTEROL SULFATE/IPRATROPIU 3 ML SOL IH SCH ×2 (07:13→13:34)
[2018-08-14 08:00] VITALS: BP 139/74
[2018-08-14] MEDS: guaiFENesin 600 MG TABER PO SCH (08:53)
[2018-08-14] MEDS: FERROUS SULFATE 325 MG TABEC PO SCH (08:53)
[2018-08-14] MEDS: LOSARTAN 50 MG TAB PO SCH (08:53)
[2018-08-14] MEDS: FLUTICASONE NASAL 50 MCG/ACTUATION 16 GM BTL NS SCH (08:53)
[2018-08-14] MEDS: ASCORBIC ACID 500 MG TAB PO SCH (08:53)
[2018-08-14] MEDS: GABAPENTIN 300 MG CAP PO SCH (08:54)
[2018-08-14] MEDS: LACTOBACILLUS RHAMNOSUS GG 1 EACH CAP PO SCH (08:54)
[2018-08-14] MEDS: buPROPion 100 MG TAB PO SCH (08:54)
[2018-08-14] MEDS: ASPIRIN 81 MG TAB.CHEW PO SCH (08:55)
[2018-08-14] MEDS: clonazePAM 0.5 MG TAB PO SCH (08:57)
[2018-08-14] MEDS: SODIUM CHLORIDE 1 GM TAB PO SCH (08:59)
[2018-08-14] MEDS ORDERED: VITC500 PO (10:10)
[2018-08-14] MEDS ORDERED: FLONAS NS (10:10)
[2018-08-14] MEDS ORDERED: Vancomycin Per Pharmacy MC (10:10)
[2018-08-14] MEDS ORDERED: LACT10CA PO (10:10)
[2018-08-14] MEDS ORDERED: GUAI-791 PO (10:10)
[2018-08-14] MEDS ORDERED: BACTNA NS (10:10)
[2018-08-14] MEDS ORDERED: DOCU-299 PO (10:10)
[2018-08-14] MEDS ORDERED: ACET-9525 PO (10:10)
[2018-08-14] MEDS ORDERED: CHLO118S2 TP (10:10)
[2018-08-14] MEDS ORDERED: SODI100076 PO (10:10)
[2018-08-14] MEDS: VANCOMYCIN 1,250 MG in DEXTROSE 5% 250 ML IV SCH (10:53)
[2018-08-14] MEDS: MUPIROCIN CA NASAL 2% 1GM TUBE NS SCH (14:02)
[2018-08-14] MEDS: CHLORHEXADINE GLUC 2% CLOTH TP SCH (14:02)
== END 2018-08-14 15:05 | DRG 177 ==
LOC: MED 05:53 → MTU 08:51
PROVIDERS: ADMIT General Practice; ATTEND General Practice
DX: J69.0 Pneumonitis due to inhalation of food and vomit (principal); N17.0 Acute kidney failure with tubular necrosis; E43 Unspecified severe protein-calorie malnutrition; E87.1 Hypo-osmolality and hyponatremia; J90 Pleural effusion, not elsewhere classified; J98.11 Atelectasis; E83.42 Hypomagnesemia; F20.9 Schizophrenia, unspecified; J40 Bronchitis, not specified as acute or chronic; I95.9 Hypotension, unspecified; D72.829 Elevated white blood cell count, unspecified; D64.9 Anemia, unspecified; E83.51 Hypocalcemia; I10 Essential (primary) hypertension; F32.9 Major depressive disorder, single episode, unspecified; K76.0 Fatty (change of) liver, not elsewhere classified; K59.00 Constipation, unspecified; B95.62 Methicillin resistant Staphylococcus aureus infection as the cause of diseases classified elsewhere; I70.0 Atherosclerosis of aorta; Z68.22 Body mass index [BMI] 22.0-22.9, adult; Z87.891 Personal history of nicotine dependence; J15.212 Pneumonia due to Methicillin resistant Staphylococcus aureus; E87.8 Other disorders of electrolyte and fluid balance, not elsewhere classified
CPT/HCPCS: 36415; 71045; 71046; 71250; 71260; 74021; 76604; 80048; 80053; 80202; 80305; 81003; 82272; 82607; 82728; 82746; 83036; 83540; 83605; 83690; 83735; 83880; 84100; 84443; 84484; 85025; 85045; 85379; 85610; 85730; 87040; 87070; 87081; 87086; 87186; 87205; 87804; 94640; 96365; 96368; 96375; 97110; 97116; 97530; 99285; J0456; J1100; J1940; J2270; J2543; J2916; J3370; J3475; J7030; J7060; J7620; Q0092; Q0163; Q9967

== ENCOUNTER 2019-05-13 09:00 | Emergency (ER) | payer OTHER ==
[~2019-05-13] VITALS: Ht 180.3 cm; Wt 79.4 kg
[~2019-05-13 09:00] MED LIST changes: +ACET-9525 PO; -ASPI-1271 PO; +ASPI-1718 PO; +BACTNA NS; +BUPR-10 PO; -CARV6.252 PO; +CHLO118S2 TP; +CLON1TAB PO; +DIPH25TA41 PO; +DOCU-299 PO; +FERR325E14 PO; +FLONAS NS; +GABA300C PO; +GUAI-791 PO; +IBUP-2213 PO; +LACT10CA PO; -LEVO750T2 PO; +LOSA50TA66 PO; +QUET400T PO; +SODI100076 PO; +VITC500 PO; +Vancomycin Per Pharmacy MC
[2019-05-13 09:11] VITALS: BP 135/67
[2019-05-13 11:00] VITALS: BP 130/68
== END 2019-05-13 10:59 | disposition home or self-care (01) ==
LOC: MED 09:00
DX: J45.909 Unspecified asthma, uncomplicated (principal); I10 Essential (primary) hypertension; Z76.0 Encounter for issue of repeat prescription; Z79.899 Other long term (current) drug therapy; Z79.82 Long term (current) use of aspirin
CPT/HCPCS: 99283

== ENCOUNTER 2019-05-18 11:50 | Emergency (ER) | payer OTHER ==
[~2019-05-18] VITALS: Ht 180.3 cm; Wt 74.8 kg
--- NOTE | 2019-05-18 11:50 | NUR ---
Patient BIBA BLS, transferred to bed 3. RN evaluating patient at bedside.
[2019-05-18 11:51] VITALS: BP 108/56
--- NOTE | 2019-05-18 11:51 | NUR ---
brought in by ems from [facility] c/o left thigh pain; "i can't walk"! denies injury hx---bipolar, depression rx-- . DENIES N/V/D; SKIN IS PINK/WARM/DRY; awake, alert. bedside monitor shows SB 54s. LUNGS CLEAR BL; HR EVEN AND REGULAR; PT DENIES ANY FEVER, CP, SOB, OR COUGH AT THIS TIME; PATIENT STATES PAIN OF 8/10 AT THIS TIME; PATIENT POSITIONED FOR COMFORT; HOB ELEVATED; BEDRAILS UP X2; BED DOWN. ER MD MADE AWARE OF PT STATUS.
--- NOTE | 2019-05-18 12:10 | NUR ---
Dr. Landis evaluating patient at bedside.
[2019-05-18] MEDS ORDERED: KETOROLAC 60 MG/2 ML VIAL IM ONE (12:15)
--- NOTE | 2019-05-18 12:27 | NUR ---
x-ray at bedside
--- NOTE | 2019-05-18 13:41 | NUR ---
PT LEFT FOR X-RAY PER TECH.
--- NOTE | 2019-05-18 13:49 | NUR ---
Patient returned from XRAY.
[2019-05-18 14:02] LABS: BASOPHILS # (AUTO) 0.1 K/uL (0.00-0.22); BASOPHILS % (AUTO) 2.6 % (0.0-2.0); EOSINOPHILS # (AUTO) 0.1 K/uL (0-0.4); EOSINOPHILS % (AUTO) 3.3 % (0.0-4.0); HEMATOCRIT 35.5 % (36-52); HEMOGLOBIN 11.8 g/dL (12.0-18.0); LYMPHOCYTES # (AUTO) 1.6 K/uL (2.0-11.5); MEAN CORPUSCULAR HEMOGLOBIN 31 pg (27-31); MEAN CORPUSCULAR HGB CONC 33 g/dL (33-37); MEAN CORPUSCULAR VOLUME 92.5 fL (80-94); MONOCYTES # (AUTO) 0.4 K/uL (0.8-1.0); MONOCYTES % (AUTO) 8.9 % (1.7-9.3); NEUTROPHILS % (AUTO) 47.2 % (42.2-75.2); PLATELET COUNT (AUTO) 282 K/uL (140-450); RED BLOOD CELL COUNT(AUTO) 3.84 MIL/uL (4.20-6.10); WHITE BLOOD COUNT (AUTO) 4.2 K/uL (4.8-10.8)
[2019-05-18 15:06] LABS: ALBUMIN 3.7 g/dL (3.4-5.0); ANION GAP 9.8 (8-16); CARBON DIOXIDE 30.7 mmol/L (21-32); POTASSIUM 3.5 mmol/L (3.5-5.1); TOTAL BILIRUBIN 0.4 mg/dL (0.0-1.0)
--- NOTE | 2019-05-18 15:51 | NUR ---
CHECKED PT, PT STILL DOES NOT HAVE URINE YET. OFFERED PT WATER TO DRINK.
[2019-05-18] MEDS ORDERED: ACETAMINOPHEN 325 MG TAB PO ONE (16:55)
[2019-05-18 17:02] LABS: APPEARANCE,URINE CLEAR (CLEAR); BILIRUBIN,URINE NEGATIVE (NEGATIVE); BLOOD, URINE NEGATIVE (NEGATIVE); COLOR,URINE YELLOW (YELLOW); LEUKOCYTE ESTERASE ,URINE NEGATIVE (NEGATIVE); NITRITE, URINE NEGATIVE (NEGATIVE); UGLUCOSE NEGATIVE (NEGATIVE)
--- NOTE | 2019-05-18 17:17 | NUR ---
[facility] HAND GLOVE CLEANER PRESENT TO BEDSIDE. PER HAND GLOVE CLEANER: THERE IS NO NURSE IN [facility]. ALL DOCUMENTS HANDED TO HAND GLOVE CLEANER. PT SIGNED DISCHARGE PAPER. NOTIFIED PT TO RETURN OUR FACILITY FOR ANY PROBLEM OR WORSENING SYMPTOMS AND F/U WITH PCP. PT VERBALIZED UNDERSTANDING.
[2019-05-18 17:26] VITALS: BP 132/78
--- NOTE | 2019-05-18 17:27 | NUR ---
Patient discharged with v/s stable. Written and verbal after care instructions given and explained. Patient verbalized understanding. Wheel Chair Assisted with to car. All questions addressed prior to discharge. Advised to follow up with PMD.
== END 2019-05-18 17:27 | disposition home or self-care (01) ==
LOC: MED 11:50
DX: M25.552 Pain in left hip (principal); J45.909 Unspecified asthma, uncomplicated; I10 Essential (primary) hypertension; F32.9 Major depressive disorder, single episode, unspecified; F20.9 Schizophrenia, unspecified; Z79.899 Other long term (current) drug therapy
CPT/HCPCS: 36415; 72100; 73502; 80053; 81003; 84484; 85025; 85651; 93005; 96372; 99284; J1885; Q0092

== ENCOUNTER 2019-08-11 17:09 | Inpatient (IN) | payer OTHER ==
[~2019-08-11] VITALS: Ht 177.8 cm; Wt 64.9 kg
[2019-08-11 17:10] VITALS: BP 102/60
--- NOTE | 2019-08-11 17:21 | NUR ---
PT PLACED IN BED 4
--- NOTE | 2019-08-11 17:30 | NUR ---
JONNY FROM [facility] C/O HEMATURIA X FRIDAY AND BILATERAL LEG PAIN. PATIENT STATES PAIN OF 0/10 AT THIS TIME; VSS; PATIENT POSITIONED FOR COMFORT; HOB ELEVATED; BEDRAILS UP X1; BED DOWN. ER MD MADE AWARE OF PT STATUS. PT IS ON MONITOR.
--- NOTE | 2019-08-11 18:52 | NUR ---
PT IS RESTING IN BED WITH EYES OPENED. VSS.
[2019-08-11 19:05] LABS: HEMATOCRIT 33.6 % (36-52); HEMOGLOBIN 11.3 g/dL (12.0-18.0); MEAN CORPUSCULAR HEMOGLOBIN 31 pg (27-31); MEAN CORPUSCULAR HGB CONC 34 g/dL (33-37); PLATELET COUNT (AUTO) 197 K/uL (140-450); RED BLOOD CELL COUNT(AUTO) 3.65 MIL/uL (4.20-6.10); RED CELL DISTRIBUTION WIDTH 14.6 % (11.6-13.7); WHITE BLOOD COUNT (AUTO) 4.8 K/uL (4.8-10.8)
--- NOTE | 2019-08-11 19:15 | NUR ---
Pt report given to JASON Lujan. Transfer of care at this time.
[2019-08-11 19:23] LABS: LYMPHOCYTES % (MANUAL) 12 % (20-46)
[2019-08-11 19:38] LABS: CARBON DIOXIDE 24.1 mmol/L (21-32); CREATININE 3.2 mg/dL (0.7-1.3); TOTAL BILIRUBIN 0.7 mg/dL (0.0-1.0)
--- NOTE | 2019-08-11 19:42 | NUR ---
PT TAKEN TO RAD
[2019-08-11 19:50] LABS: ANION GAP 16.9 (8-16)
--- NOTE | 2019-08-11 20:04 | NUR ---
PT RETURN FROM RAD
[2019-08-11] MEDS ORDERED: NACL 0.9% 1,000 ML IV ONE (20:10)
[2019-08-11] MEDS ORDERED: AZITHROMYCIN 500 MG in DEXTROSE 5% 250 ML IV ONE (20:30)
--- NOTE | 2019-08-11 20:50 | NUR ---
NASAL FLU SWAB COLLECTED AND SENT TO LAB AT THIS TIME
[2019-08-11] MEDS ORDERED: cefTRIAXone 1,000 MG VIAL ONE (20:51)
[2019-08-11 20:58] LABS: PROTHROMBIN TIME 10.8 secs (10.8-13.4)
[2019-08-11 21:18] LABS: APPEARANCE,URINE CLEAR (CLEAR); BILIRUBIN,URINE NEGATIVE (NEGATIVE); BLOOD, URINE NEGATIVE (NEGATIVE); COLOR,URINE YELLOW (YELLOW); LEUKOCYTE ESTERASE ,URINE NEGATIVE (NEGATIVE); NITRITE, URINE NEGATIVE (NEGATIVE); PH,URINE 5.5 (5.0-9.0); UGLUCOSE NEGATIVE (NEGATIVE)
[2019-08-11] MEDS ORDERED: ONDANSETRON 4 MG/2 ML VIAL IVP PRN (21:25)
[2019-08-11] MEDS ORDERED: AZITHROMYCIN 500 MG INJ VIAL IV ONE (21:27)
--- NOTE | 2019-08-11 21:40 | NUR ---
Dr. Petit examining patient.
[2019-08-11 23:11] VITALS: BP 98/62
--- NOTE | 2019-08-11 23:11 | NUR ---
RECEIVED BEDSIDE REPORT FROM LANDMAN JOS. PT IS AAOX4. BUT HAS MOMENTS OF CONFUSION PER RN. RESPIRATIONS ARE EQUAL AND UNLABORED ON NC 2L O2 SAT 94%. PT COMING FROM [facility]. C/C HEMATURIA PT STATES STARTED FRIDAY AND FRIDAY NO MORE BLOOD NOTED IN URINE PER RN. DX PNA. PT RECEIVED ROCEPHIN AND ZITHROMAX IN ER. IV ON L FA 22G SL AT THIS TIME. PT DENIES ANY HX EXCEPT BIPOLAR. MEDICAL RECORD SHOWS HX HTN AND ASTHMA. MRSA SWAB OBTAINED. VS:98/62 HR 99 94% 2L O2 RR 18 98.2 DENIES PAIN. ORIENTED PT TO ROOM,STAFF, CALL LIGHT AND VISITING HOURS. POC DISCUSSED WITH PT. CALL LIGHT IS WITHIN REACH. WILL CONTINUE TO MONITOR.
--- NOTE | 2019-08-11 23:11 | NUR ---
PT ADMITTED TO [facility]. TRANSFERRED PT VIA [facility] WITH [facility] EMT, STABLE CONDITION. REPORT GIVEN TO LULU GOMEZ. TRANSFER OF CARE AT THIS TIME.
[2019-08-11] MEDS: NACL 0.9% 1,000 ML IV SCH (23:24)
[2019-08-11] MEDS: HYDROcodone/APAP 7.5/325 MG 1 TAB PO PRN (23:36)
--- NOTE | 2019-08-11 23:36 | NUR ---
PRN NORCO GIVEN FOR R RIB PAIN 01/04. ALL NEEDS MET AT THIS TIME. WILL CONTINUE TO MONITOR.
[2019-08-11 23:52] LABS: BARBITURATE, URINE NEG. ng/ml (NEG <=200); BENZODIAZEPINE, URINE NEG. ng/mL (NEG <=200); CANNABINOID, URINE NEG. ng/mL (NEG <=50); COCAINE, URINE NEG. ng/mL (NEG <=300); OPIATE, URINE NEG. ng/mL (NEG <=2000); PHENCYCLIDINE SCREEN,URINE NEG. ng/mL (NEG <=25)
[2019-08-12 00:10] LABS: MAGNESIUM 1.4 mg/dL (1.8-2.4); PHOSPHORUS 5.3 mg/dL (2.5-4.9); THYROID STIMULATING HORMONE 1.23 uIU/mL (0.34-3.74)
--- NOTE | 2019-08-12 00:20 | NUR ---
PATIENT IS SITTING UP IN BED EATING SANDWICH. NO S/S OF DISTRESS. SAFETY MEASURES ARE IN PLACE. WILL CONTINUE TO MONITOR.
[2019-08-12] MEDS ORDERED: IBUPROFEN 600 MG TAB PO SCH (02:30)
[2019-08-12] MEDS ORDERED: DONE10TA10 PO (02:42)
--- NOTE | 2019-08-12 02:54 | NUR ---
ADMINISTERED SEROQUEL PER ORDERS. PT TOLERATED WELL. ALL NEEDS MET AT THIS TIME.
[2019-08-12] MEDS ORDERED: QUEtiapine FUMARATE 100 MG TAB PO SCH (03:00)
[2019-08-12 04:00] VITALS: BP 104/62
--- NOTE | 2019-08-12 04:00 | NUR ---
VITAL SIGNS ARE WITHIN NORMAL LIMITS. ALL SAFETY MEASURES ARE IN PLACE. CALL LIGHT IS WITHIN REACH.
[2019-08-12] MEDS ORDERED: PIPERACILLIN/TAZOBACTAM 2.25 GM VIAL IV ONE (04:07)
[2019-08-12] MEDS ORDERED: PIPER/TAZO 2.25GM/D5W PREMIX 50 ML IV SCH (05:00)
[2019-08-12] MEDS ORDERED: IBUPROFEN 600 MG TAB PO PRN (05:15)
[2019-08-12] MEDS ORDERED: MAGNESIUM OXIDE 400 MG TAB PO SCH (05:30)
--- NOTE | 2019-08-12 05:42 | NUR ---
ADMINISTERED MAG OX PER ORDERS. EDUCATED PT ON NEED FOR SPUTUM CX. SPECIMEN AT BEDSIDE. PT VERBALIZED UNDERSTANDING. ALL NEEDS MET AT THIS TIME.
[2019-08-12] MEDS ORDERED: PIPERACILLIN/TAZOBACTAM 3.375 GM in DEXTROSE 5% 50 ML IV SCH (06:00)
[2019-08-12] MEDS: HYDROcodone/APAP 7.5/325 MG 1 TAB PO PRN ×4 (06:47→22:47)
--- NOTE | 2019-08-12 07:09 | NUR ---
GAVE BEDSIDE REPORT TO DAY RN. PT ENDORSED IN STABLE CONDITION.
--- NOTE | 2019-08-12 07:10 | NUR ---
RECEIVED REPORT FROM NIGHT NURSE. PATIENT IS IN STABLE CONDITION. PT ASLEEP, EASILY AROUSABLE. IV INTACT AND PATENT TO LEFT FOREARM WITH IVF NS 100ML/HR. BED IN LOW POSITION. SAFETY MEASURES IN PLACE. CALL LIGHT WITHIN REACH.
[2019-08-12 07:54] LABS: BASOPHILS % (AUTO) 0.4 % (0.0-2.0); EOSINOPHILS # (AUTO) 0.1 K/uL (0-0.4); EOSINOPHILS % (AUTO) 2.3 % (0.0-4.0); HEMATOCRIT 31.2 % (36-52); HEMOGLOBIN 10.7 g/dL (12.0-18.0); LYMPHOCYTES # (AUTO) 0.2 K/uL (2.0-11.5); LYMPHOCYTES % (AUTO) 5.7 % (20.5-51.1); MEAN CORPUSCULAR HEMOGLOBIN 31 pg (27-31); MEAN CORPUSCULAR HGB CONC 34 g/dL (33-37); MEAN CORPUSCULAR VOLUME 91.7 fL (80-94); MONOCYTES # (AUTO) 0.1 K/uL (0.8-1.0); MONOCYTES % (AUTO) 1.9 % (1.7-9.3); NEUTROPHILS # (AUTO) 3.1 K/uL (1.8-7.7); NEUTROPHILS % (AUTO) 89.7 % (42.2-75.2); PLATELET COUNT (AUTO) 186 K/uL (140-450); RED CELL DISTRIBUTION WIDTH 14.6 % (11.6-13.7); WHITE BLOOD COUNT (AUTO) 3.5 K/uL (4.8-10.8)
[2019-08-12 08:00] VITALS: BP 92/51
[2019-08-12] MEDS: LOSARTAN 50 MG TAB PO SCH (09:00)
--- NOTE | 2019-08-12 09:07 | NUR ---
PATIENT HAS BEEN SCREENED AND CATEGORIZED MODERATE NUTRITION RISK. PATIENT WILL BE SEEN WITHIN 3-5 DAYS OF ADMISSION. 08/14/19 08/16/[address]
[2019-08-12] MEDS: FERROUS SULFATE 325 MG TABEC PO SCH ×2 (09:29→21:09)
[2019-08-12] MEDS: ASPIRIN 81 MG TAB.CHEW PO SCH (09:30)
[2019-08-12] MEDS: ASCORBIC ACID 500 MG TAB PO SCH ×2 (09:30→21:12)
[2019-08-12] MEDS: DONEPEZIL 10 MG TAB PO SCH (09:30)
[2019-08-12] MEDS: buPROPion 100 MG TAB PO SCH ×2 (09:30→21:12)
[2019-08-12] MEDS: DOCUSATE SODIUM 100 MG GELCAP PO SCH ×2 (09:30→21:09)
[2019-08-12] MEDS: FAMOTIDINE 20 MG TAB PO SCH (09:31)
[2019-08-12] MEDS: clonazePAM 0.5 MG TAB PO SCH ×2 (09:33→21:12)
--- NOTE | 2019-08-12 09:35 | NUR ---
PATIENT IS ALERT, ORIENTED X4. AM MEDICATIONS GIVEN ORDERED. PT JUST FINISHED EATING BREAKFAST. NO S/S OF DISTRESS NOTED. CALL LIGHT WITHIN REACH.
[2019-08-12 09:39] LABS: MAGNESIUM 1.3 mg/dL (1.8-2.4)
[2019-08-12] MEDS: GABAPENTIN 300 MG CAP PO SCH (09:39)
[2019-08-12 09:40] LABS: CHOL/HDL RATIO 3.5 (1-4.5)
[2019-08-12 10:22] LABS: ANION GAP 15.7 (8-16); CARBON DIOXIDE 22.4 mmol/L (21-32); PHOSPHORUS 3.9 mg/dL (2.5-4.9); POTASSIUM 4.1 mmol/L (3.5-5.1)
[2019-08-12 10:23] LABS: CREATININE 2.3 mg/dL (0.7-1.3)
--- NOTE | 2019-08-12 11:30 | NUR ---
PATIENT IS ALERT, ORIENTED X4. AWAKE, VERBALLY RESPONSIVE, WATCHING TV. NO S/S OF DISTRESS NOTED. CALL LIGHT WITHIN REACH. BED IN LOW POSITION. SAFETY MEASURES IN PLACE.
[2019-08-12] MEDS: PIPERACILLIN/TAZOBACTAM 2.25 GM in DEXTROSE 5% 50 ML IV SCH ×3 (11:47→21:13)
[2019-08-12 12:00] VITALS: BP 93/57
--- NOTE | 2019-08-12 13:30 | NUR ---
ROUNDS MADE. PATIENT IS ASLEEP EASILY AROUSABLE. RESPIRATION EVEN AND UNLABORED. IV INTACT AND PATENT TO LEFT FOREARM. NO S/S OF DISTRESS NOTED. CALL LIGHT WITHIN REACH. BED IN LOW POSITION. SAFETY MEASURES IN PLACE.
[2019-08-12] MEDS: MAG SULF 2000 MG/WATER PREMIX 50 ML IV SCH ×2 (14:01→16:17)
--- NOTE | 2019-08-12 14:01 | NUR ---
IV MAGNESIUM RIDER STARTED X1 BAG ORDERED FOR MG LEVEL 1.3.
[2019-08-12] MEDS: NACL 0.9% 1,000 ML IV SCH (14:02)
--- NOTE | 2019-08-12 15:30 | NUR ---
MADE ROUNDS PATIENT IS ALERT, AWAKE, ORIENTED X4. NO S/S OF DISTRESS NOTED. ABLE TO MAKE NEEDS KNOWN. CALL LIGHT WITHIN REACH.
[2019-08-12 16:00] VITALS: BP 92/51
--- NOTE | 2019-08-12 16:17 | NUR ---
SECOND BAG OF MG RIDER GIVEN ORDERED. TOLERATING WELL. PATIENT ALERT, AWAKE AND ORIENTED X4. NO S/S OF DISTRESS NOTED. O2 ON @ 2L, O2 SAT 96%. CALL LIGHT WITHIN REACH.
--- NOTE | 2019-08-12 18:40 | NUR ---
PATIENT REMAINS STABLE. PATIENT AWAKE, ALERT AND EATING DINNER. NO S/S OF DISTRESS NOTED. IV INTACT AND PATENT TO LEFT ARM WITH IVF INFUSING @ 70ML/HR. CALL LIGHT WITHIN REACH. BED IN LOW POSITION.
--- NOTE | 2019-08-12 19:15 | NUR ---
PATIENT IN STABLE CONDITION. REPORT GIVEN TO NIGHT NURSE FOR CONTINUITY OF CARE.
[2019-08-12 20:00] VITALS: BP 104/51
[2019-08-12] MEDS: QUEtiapine FUMARATE 100 MG TAB PO SCH (21:12)
[2019-08-13] MEDS: NACL 0.9% 1,000 ML IV SCH ×2 (00:34→11:00)
[2019-08-13] MEDS: PIPERACILLIN/TAZOBACTAM 2.25 GM in DEXTROSE 5% 50 ML IV SCH ×4 (05:27→22:42)
[2019-08-13 05:39] VITALS: BP 108/64
[2019-08-13 06:43] LABS: BASOPHILS % (AUTO) 0.5 % (0.0-2.0); EOSINOPHILS # (AUTO) 0.1 K/uL (0-0.4); EOSINOPHILS % (AUTO) 1.5 % (0.0-4.0); HEMATOCRIT 31.7 % (36-52); HEMOGLOBIN 10.6 g/dL (12.0-18.0); LYMPHOCYTES # (AUTO) 0.6 K/uL (2.0-11.5); LYMPHOCYTES % (AUTO) 7.2 % (20.5-51.1); MEAN CORPUSCULAR HEMOGLOBIN 31 pg (27-31); MEAN CORPUSCULAR HGB CONC 33 g/dL (33-37); MONOCYTES # (AUTO) 0.5 K/uL (0.8-1.0); MONOCYTES % (AUTO) 5.1 % (1.7-9.3); NEUTROPHILS # (AUTO) 7.6 K/uL (1.8-7.7); NEUTROPHILS % (AUTO) 85.7 % (42.2-75.2); PLATELET COUNT (AUTO) 191 K/uL (140-450); RED BLOOD CELL COUNT(AUTO) 3.44 MIL/uL (4.20-6.10); RED CELL DISTRIBUTION WIDTH 14.9 % (11.6-13.7); WHITE BLOOD COUNT (AUTO) 8.8 K/uL (4.8-10.8)
[2019-08-13 06:56] LABS: ANION GAP 13.8 (8-16); CARBON DIOXIDE 23.3 mmol/L (21-32); CREATININE 1.9 mg/dL (0.7-1.3); POTASSIUM 4.1 mmol/L (3.5-5.1)
[2019-08-13 07:02] LABS: MAGNESIUM 2.4 mg/dL (1.8-2.4); PHOSPHORUS 2.7 mg/dL (2.5-4.9)
--- NOTE | 2019-08-13 07:10 | NUR ---
RECEIVE REPORT FROM NIGHT NURSE, PT IS ASLEEP, IV INTACT, RUNNING 70ML/H, PT IS STABLE, RESPIRATIONS ARE EVEN AND UNLABORED, SAFETY MEASURES IN PLACE, CALL LIGHT WITHIN REACH.
[2019-08-13 08:00] VITALS: BP 105/69
--- NOTE | 2019-08-13 08:11 | NUR ---
SYSTEMS SOFTWARE DESIGNER NOTIFIED ME PT SINUS TACHY AND A FIB ON TELEMONITOR, ASSESS PT, BP 114/68, HR 113, 02 98, RR 18, PT STATES CHEST PAIN 03/06. NOTIFIED DR POLK ABOUT PT CHEST PAIN, DR POLK SAID HE WOULD PUT IN ORDERED. WILL CARRY OUT ORDERED ONCE RECEIVED
[2019-08-13] MEDS: NITROGLYCERIN 0.4 MG TAB SL PRN (08:25)
--- NOTE | 2019-08-13 08:26 | NUR ---
GAVE PT NITROSTAT FOR CHEST PAIN OF 8/10, PT A FIB ON TELEMONITOR,
[2019-08-13] MEDS: ASCORBIC ACID 500 MG TAB PO SCH ×2 (08:51→20:18)
[2019-08-13] MEDS: LOSARTAN 50 MG TAB PO SCH (08:51)
[2019-08-13] MEDS: FERROUS SULFATE 325 MG TABEC PO SCH ×2 (08:51→20:19)
[2019-08-13] MEDS: FAMOTIDINE 20 MG TAB PO SCH (08:53)
[2019-08-13] MEDS: DOCUSATE SODIUM 100 MG GELCAP PO SCH ×2 (08:53→20:17)
[2019-08-13] MEDS: buPROPion 100 MG TAB PO SCH ×2 (08:53→20:17)
[2019-08-13] MEDS: GABAPENTIN 300 MG CAP PO SCH (08:53)
[2019-08-13] MEDS: ASPIRIN 81 MG TAB.CHEW PO SCH (08:54)
[2019-08-13] MEDS: DONEPEZIL 10 MG TAB PO SCH (08:54)
[2019-08-13] MEDS: clonazePAM 0.5 MG TAB PO SCH ×2 (08:55→20:18)
--- NOTE | 2019-08-13 11:09 | NUR ---
KATIE BRUNO ORDERED, EDUCATION GIVEN, PT ASLEEP BUT WAKES UP WHEN SPOKEN TO, PT IS ON 2L NC, PT TOLERATING WELL, CALL LIGHT WITHIN REACH.
[2019-08-13 12:00] VITALS: BP 124/58
[2019-08-13 16:00] VITALS: BP 125/57
[2019-08-13] MEDS: ACETAMINOPHEN 325 MG TAB PO PRN ×2 (16:00→22:42)
--- NOTE | 2019-08-13 16:02 | NUR ---
GAVE PT TYLENOL FOR HEADACHE, PT EDUCATION GIVEN, PT RESTING IN BED, NO SIGNS OF DISTRESS NOTED, CALL LIGHT WITHIN REACH.
[2019-08-13] MEDS: CHLORHEXADINE GLUC 2% CLOTH TP SCH (17:00)
--- NOTE | 2019-08-13 18:00 | NUR ---
GAVE ORDERED MEDICATION, PT IS STABLE, RESPIRATIONS ARE EVEN AND UNLABORED ON ROOM AIR, WILL ENDORSE TO NIGHT NURSE FOR CONTINUITY OF CARE. CALL LIGHT WITHIN REACH.
[2019-08-13] MEDS: MUPIROCIN CA NASAL 2% 1GM TUBE NS SCH (18:29)
--- NOTE | 2019-08-13 19:42 | NUR ---
RECEIVED BEDSIDE REPORT FROM DAY SHIFT NURSE. PATIENT IS SLEEPING AROUSABLE BY TOUCH AND NAME. RESPIRATION EVEN UNLABORED ON ROOM AIR. SKIN IS WARM AND DRY. IV PATENT AND INTACT. PLAN OF CARE WAS DISCUSSED. ALL SAFETY MEASURES IN PLACE. BED IS AT LOW POSITION. CALL LIGHT WITHIN REACH AND VERBALIZES ITS USED. WILL CONTINUE TO MONITOR.
[2019-08-13 20:00] VITALS: BP 111/63
--- NOTE | 2019-08-13 20:00 | NUR ---
INITIAL ASSESSMENT DONE. VITALS WERE TAKEN. PATIENT IS ASKING FOR HIS MED TO BE GIVEN EARLY BECAUSE HE WANTS TO SLEEP EARLY. WILL ADMINISTERED ONCE AVAILABLE.
--- NOTE | 2019-08-13 20:05 | NUR ---
PATIENT REFUSED TO WEAR HIS NASAL CANNULA. RISK AND BENEFIT EXPLAINED. ADVICE PATIENT WHEN FEELING SHORTNESS OF BREATH NOTIFY ME. PATIENT SATING 92% ON ROOM AIR. WILL CONTINUE TO MONITOR
--- NOTE | 2019-08-13 20:15 | NUR ---
ALL SCHEDULED MEDS WERE GIVEN PER ORDER. NO ASE NOTED. WILL CONTINUE TO MONITOR.
[2019-08-13] MEDS: QUEtiapine FUMARATE 100 MG TAB PO SCH (20:18)
--- NOTE | 2019-08-13 22:12 | NUR ---
CHECKED PATIENT. PATIENT SLEEPING RESPIRATION EVEN UNLABORED ON ROOM AIR. NO DISTRESS NOTED. WILL CONTINUE TO MONITOR.
--- NOTE | 2019-08-13 22:49 | NUR ---
PATIENT COMPLAINED OF HEADACHE 5/10. PRN PAIN MED ADMINISTERED PER ORDER. WILL CONTINUE TO MONITOR.
[2019-08-14] VITALS: BP 127/72
--- NOTE | 2019-08-14 00:12 | NUR ---
VITALS WERE TAKEN. PATIENT IN STABLE CONDITION. REASSESSED HEADACHE PAIN. PATIENT STATED NO MORE PAIN. WILL CONTINUE TO MONITOR.
--- NOTE | 2019-08-14 02:27 | NUR ---
CHECK ON PATIENT. PATIENT SLEEPING RESPIRATION EVEN UNLABORED ON ROOM AIR. NO DISTRESS NOTED. WILL CONTINUE TO MONITOR.
[2019-08-14 04:00] VITALS: BP 118/69
--- NOTE | 2019-08-14 04:13 | NUR ---
VITALS WERE TAKEN. PATIENT IN STABLE CONDITION. NO DISTRESS NOTED. WILL CONTINUE TO MONITOR.
[2019-08-14] MEDS: NACL 0.9% 1,000 ML IV SCH (04:22)
[2019-08-14] MEDS: PIPERACILLIN/TAZOBACTAM 2.25 GM in DEXTROSE 5% 50 ML IV SCH ×4 (04:22→23:10)
--- NOTE | 2019-08-14 07:10 | NUR ---
ENDORSED PATIENT TO DAY SHIFT NURSE. PATIENT IN STABLE CONDITION.
--- NOTE | 2019-08-14 07:15 | NUR ---
RECEIVED BEDSIDE REPORT FROM NIGHT NURSE. PATIENT IS ASLEEP, EASILY AROUSABLE. RESPIRATIONS EVEN AND UNLABORED. IV INTACT AND PATENT TO RIGHT FOREARM. BED IN LOW POSITION. PLANS OF CARE DISCUSSED. CALL LIGHT WITHIN REACH.
[2019-08-14 08:00] VITALS: BP 118/70
[2019-08-14 08:12] LABS: BASOPHILS # (AUTO) 0.1 K/uL (0.00-0.22); BASOPHILS % (AUTO) 0.9 % (0.0-2.0); EOSINOPHILS # (AUTO) 0.2 K/uL (0-0.4); HEMATOCRIT 32.9 % (36-52); HEMOGLOBIN 10.8 g/dL (12.0-18.0); LYMPHOCYTES # (AUTO) 1.4 K/uL (2.0-11.5); LYMPHOCYTES % (AUTO) 17.5 % (20.5-51.1); MEAN CORPUSCULAR HEMOGLOBIN 30 pg (27-31); MEAN CORPUSCULAR HGB CONC 33 g/dL (33-37); MEAN CORPUSCULAR VOLUME 92.3 fL (80-94); MONOCYTES # (AUTO) 0.8 K/uL (0.8-1.0); MONOCYTES % (AUTO) 9.9 % (1.7-9.3); NEUTROPHILS # (AUTO) 5.6 K/uL (1.8-7.7); NEUTROPHILS % (AUTO) 69.7 % (42.2-75.2); PLATELET COUNT (AUTO) 221 K/uL (140-450); RED BLOOD CELL COUNT(AUTO) 3.57 MIL/uL (4.20-6.10)
[2019-08-14 08:25] LABS: MAGNESIUM 1.7 mg/dL (1.8-2.4); PHOSPHORUS 4.4 mg/dL (2.5-4.9)
[2019-08-14] MEDS: ASPIRIN 81 MG TAB.CHEW PO SCH (08:48)
[2019-08-14] MEDS: buPROPion 100 MG TAB PO SCH ×2 (08:48→20:27)
[2019-08-14] MEDS: FAMOTIDINE 20 MG TAB PO SCH (08:48)
[2019-08-14] MEDS: ASCORBIC ACID 500 MG TAB PO SCH ×2 (08:48→20:26)
[2019-08-14] MEDS: FERROUS SULFATE 325 MG TABEC PO SCH ×2 (08:48→20:27)
[2019-08-14] MEDS: DOCUSATE SODIUM 100 MG GELCAP PO SCH ×2 (08:48→20:26)
[2019-08-14] MEDS: DONEPEZIL 10 MG TAB PO SCH (08:49)
[2019-08-14] MEDS: LOSARTAN 50 MG TAB PO SCH (08:49)
[2019-08-14] MEDS: GABAPENTIN 300 MG CAP PO SCH (08:50)
[2019-08-14] MEDS: clonazePAM 0.5 MG TAB PO SCH ×2 (08:54→20:31)
--- NOTE | 2019-08-14 08:55 | NUR ---
PATIENT ALERT, VERBALLY RESPONSIVE, EATING BREAKFAST. NO S/S OF DISTRESS NOTED. AM MEDICATIONS GIVEN ORDERED. DENIES PAIN OR DISCOMFORT AT THIS TIME. CALL LIGHT WITHIN REACH. BED IN LOW POSITION. BED ALARM ON.
[2019-08-14 09:26] LABS: CARBON DIOXIDE 23.4 mmol/L (21-32); CREATININE 1.5 mg/dL (0.7-1.3); POTASSIUM 3.4 mmol/L (3.5-5.1)
--- NOTE | 2019-08-14 11:05 | NUR ---
IV ANTIBIOTIC STARTED ORDERED. PATIENT IS AWAKE, ALERT AND VERBALLY RESPONSIVE. PT WATCHING TV. NO S/S OF DISTRESS NOTED. BED ALARM ON. BED IN LOW POSITION. CALL LIGHT WITHIN REACH.
[2019-08-14 12:00] VITALS: BP 122/72
--- NOTE | 2019-08-14 13:05 | NUR ---
ROUNDS MADE. PATIENT AWAKE, VERBALLY RESPONSIVE. NO S/S OF DISTRESS NOTED. O2 SAT 94% ON ROOM AIR. BED ALARM ON AND IN LOW POSITION. CALL LIGHT WITHIN REACH.
[2019-08-14] MEDS ORDERED: guaiFENesin DM 200/20 MG-10 ML 10 ML UDC PO SCH (13:41)
[2019-08-14] MEDS ORDERED: FUROSEMIDE 40 MG/4 ML VIAL IVP SCH (14:00)
[2019-08-14] MEDS ORDERED: POTASSIUM CHLORIDE 10 MEQ TABER PO SCH (14:00)
[2019-08-14] MEDS: MAGNESIUM CHLORIDE 64 MG TABEC PO SCH (14:18)
--- NOTE | 2019-08-14 14:30 | NUR ---
IVP LASIX X1, POTASSIUM 40MEQ PO X1, ROBITUSSIN SYRUP 5ML, AND SLOW MAG 64MG X1 NOW GIVEN ORDERED. PATIENT REPORTS SOB, O2 @ 2L VIA NC CANNULA PLACED. O2 SAT 95%. WILL CONTINUE TO MONITOR.
[2019-08-14 16:00] VITALS: BP 121/72
--- NOTE | 2019-08-14 16:30 | NUR ---
PATIENT AWAKE, ALERT AND VERBALLY RESPONSIVE. USES THE URINAL FOR VOIDING. NO S/S OF DISTRESS NOTED. ENCOURAGED TO USE CALL LIGHT WITHIN REACH. VERBALIZED UNDERSTANDING.
[2019-08-14] MEDS: MUPIROCIN CA NASAL 2% 1GM TUBE NS SCH (17:08)
[2019-08-14] MEDS: CHLORHEXADINE GLUC 2% CLOTH TP SCH (17:09)
--- NOTE | 2019-08-14 17:45 | NUR ---
REMINDED RT REGARDING MISSED ALBUTEROL DOSES.
--- NOTE | 2019-08-14 18:10 | NUR ---
PATIENT SITTING UP, EATING DINNER. ALERT AND AWAKE. NO S/S OF DISTRESS NOTED. CALL LIGHT WITHIN REACH.
[2019-08-14] MEDS: guaiFENesin DM 200/20 MG-10 ML 10 ML UDC PO PRN (18:59)
[2019-08-14] MEDS: ALBUTEROL SULFATE/IPRATROPIU 3 ML SOL IH SCH ×2 (19:00→19:05)
--- NOTE | 2019-08-14 19:02 | NUR ---
PATIENT REQUESTED COUGH MEDICATION, GIVEN ORDERED PRN. PATIENT IS IN STABLE CONDITION. WILL ENDORSE TO NIGHT NURSE FOR CONTINUITY OF CARE.
--- NOTE | 2019-08-14 19:11 | NUR ---
RECEIVED PT ON 2L NC WITH SP02 OF 96% AND A CLEAR DIMINISHED BREATH SOUNDS. NO RESPIRATORY DISTRESS NOTED AT THIS TIME. HHN TX GIVEN ORDERED WITH NO ADVERSE REACTION. WILL CONTINUE TO MONITOR PT
--- NOTE | 2019-08-14 19:23 | NUR ---
RECEIVED BEDSIDE REPORT FROM DAY SHIFT NURSE. PATIENT IS GETTING BREATHING TREATMENT. RESPIRATION EVEN UNLABORED ON ROOM AIR. SKIN IS WARM AND DRY. IV PATENT AND INTACT. PLAN OF CARE WAS DISCUSSED. ALL SAFETY MEASURES IN PLACE. BED IS AT LOW POSITION. CALL LIGHT WITHIN REACH AND VERBALIZES ITS USED. WILL CONTINUE TO MONITOR.
[2019-08-14 20:00] VITALS: BP 124/78
--- NOTE | 2019-08-14 20:05 | NUR ---
INITIAL ASSESSMENT DONE. VITALS WERE TAKEN. PATIENT IN STABLE CONDITION. WILL CONTINUE TO MONITOR.
[2019-08-14] MEDS: QUEtiapine FUMARATE 100 MG TAB PO SCH (20:26)
--- NOTE | 2019-08-14 20:40 | NUR ---
ALL SCHEDULED MEDS WERE GIVEN PER ORDER. NO ASE NOTED. WILL CONTINUE TO MONITOR.
--- NOTE | 2019-08-14 21:30 | NUR ---
PATIENT IS TRYING TO GET UP. ACCIDENTALLY PULLED OUT HIS IV. NO ACTIVE BLEEDING NOTED. CANNULA TIP INTACT. WILL INSERT A NEW ONE.
--- NOTE | 2019-08-14 22:30 | NUR ---
INSERTED NEW IV LINE. RIGHT FOREARM 22 G. TOLERATED IT WELL. WILL CONTINUE TO MONITOR.
[2019-08-15] VITALS: BP 109/68
--- NOTE | 2019-08-15 00:10 | NUR ---
VITALS WERE TAKEN. PATIENT IN STABLE CONDITION. NO DISTRESS NOTED. WILL CONTINUE TO MONITOR.
[2019-08-15] MEDS: HYDROcodone/APAP 7.5/325 MG 1 TAB PO PRN ×4 (01:37→16:34)
--- NOTE | 2019-08-15 01:37 | NUR ---
PATIENT WOKE UP FROM PAIN. 6/10 ABDOMINAL PAIN. PRN PAIN MED ADMINISTERED PER ORDER. WILL CONTINUE TO MONITOR.
[2019-08-15 04:00] VITALS: BP 112/65
--- NOTE | 2019-08-15 04:00 | NUR ---
VITALS WERE TAKEN. PATIENT IN STABLE CONDITION. NO DISTRESS NOTED. WILL CONTINUE TO MONITOR.
[2019-08-15] MEDS: PIPERACILLIN/TAZOBACTAM 2.25 GM in DEXTROSE 5% 50 ML IV SCH ×4 (04:49→22:06)
[2019-08-15] MEDS ORDERED: INFLUENZA VACCINE QUAD 0.5 ML SYR IMVAC PRN (06:50)
[2019-08-15] MEDS ORDERED: PNEUMOCOCCAL VACCINE 23 MCG/0.5 ML VIAL IMVAC SCH (06:50)
[2019-08-15] MEDS: ALBUTEROL SULFATE/IPRATROPIU 3 ML SOL IH SCH ×3 (07:00→20:06)
--- NOTE | 2019-08-15 07:04 | NUR ---
ENDORSED PATIENT TO DAY SHIFT NURSE. PATIENT IN STABLE CONDITION.
[2019-08-15 07:31] LABS: BASOPHILS # (AUTO) 0.1 K/uL (0.00-0.22); BASOPHILS % (AUTO) 0.6 % (0.0-2.0); EOSINOPHILS # (AUTO) 0.1 K/uL (0-0.4); EOSINOPHILS % (AUTO) 1.2 % (0.0-4.0); HEMATOCRIT 30.7 % (36-52); HEMOGLOBIN 10.3 g/dL (12.0-18.0); LYMPHOCYTES # (AUTO) 1.8 K/uL (2.0-11.5); MEAN CORPUSCULAR HEMOGLOBIN 31 pg (27-31); MEAN CORPUSCULAR HGB CONC 33 g/dL (33-37); MEAN CORPUSCULAR VOLUME 91.2 fL (80-94); MONOCYTES # (AUTO) 1.1 K/uL (0.8-1.0); NEUTROPHILS # (AUTO) 5.3 K/uL (1.8-7.7); PLATELET COUNT (AUTO) 220 K/uL (140-450); RED BLOOD CELL COUNT(AUTO) 3.37 MIL/uL (4.20-6.10); RED CELL DISTRIBUTION WIDTH 14.8 % (11.6-13.7); WHITE BLOOD COUNT (AUTO) 8.3 K/uL (4.8-10.8)
[2019-08-15 07:36] LABS: ANION GAP 15.2 (8-16); CARBON DIOXIDE 26.4 mmol/L (21-32); CREATININE 1.4 mg/dL (0.7-1.3); POTASSIUM 3.6 mmol/L (3.5-5.1)
[2019-08-15 07:49] LABS: MAGNESIUM 1.3 mg/dL (1.8-2.4); PHOSPHORUS 5.5 mg/dL (2.5-4.9)
--- NOTE | 2019-08-15 07:57 | NUR ---
RECEIVED BEDSIDE REPORT FROM PM RN PT AWAKE IN BED PT APPEARS STABLE AND IN NO APPARENT DISTRESS. ALL SAFETY MEASURES ARE IN PLACE WILL CONTINUE TO MONITOR.
[2019-08-15 08:00] VITALS: BP 108/68
[2019-08-15 08:09] LABS: LYMPHOCYTES % (AUTO) 21.2 % (20.5-51.1)
[2019-08-15] MEDS: buPROPion 100 MG TAB PO SCH ×2 (08:36→20:31)
[2019-08-15] MEDS: clonazePAM 0.5 MG TAB PO SCH ×2 (08:37→20:32)
[2019-08-15] MEDS: LOSARTAN 50 MG TAB PO SCH (08:38)
[2019-08-15] MEDS: DONEPEZIL 10 MG TAB PO SCH (08:39)
[2019-08-15] MEDS: FERROUS SULFATE 325 MG TABEC PO SCH ×2 (08:39→20:31)
[2019-08-15] MEDS: DOCUSATE SODIUM 100 MG GELCAP PO SCH ×2 (08:39→20:31)
[2019-08-15] MEDS: FAMOTIDINE 20 MG TAB PO SCH (08:39)
[2019-08-15] MEDS: ASPIRIN 81 MG TAB.CHEW PO SCH (08:40)
[2019-08-15] MEDS: MAGNESIUM CHLORIDE 64 MG TABEC PO SCH (08:40)
[2019-08-15] MEDS: GABAPENTIN 300 MG CAP PO SCH (08:40)
--- NOTE | 2019-08-15 09:16 | NUR ---
FREQUENT ROUNDING ON PT PT APPEARS STABLE AND IN NO APPARENT DISTRESS. ALL SAFETY MEASURES ARE IN PLACE WILL CONTINUE TO MONITOR.
--- NOTE | 2019-08-15 11:35 | NUR ---
FREQUENT ROUNDING ON PT PT APPEARS STABLE AND IN NO APPARENT DISTRESS. ALL SAFETY MEASURES ARE IN PLACE WILL CONTINUE TO MONITOR.
[2019-08-15] MEDS: ASCORBIC ACID 500 MG TAB PO SCH ×2 (12:22→20:31)
[2019-08-15 12:38] VITALS: BP 113/67
--- NOTE | 2019-08-15 13:46 | NUR ---
FREQUENT ROUNDING ON PT PT APPEARS STABLE AND IN NO APPARENT DISTRESS. ALL SAFETY MEASURES ARE IN PLACE WILL CONTINUE TO MONITOR.
[2019-08-15] MEDS ORDERED: CALCIUM ACETATE 667 MG TAB PO SCH (14:00)
[2019-08-15] MEDS ORDERED: FUROSEMIDE 40 MG/4 ML VIAL IVP SCH (14:00)
[2019-08-15] MEDS ORDERED: MAG SULF 2000 MG/WATER PREMIX 100 ML IV SCH (14:00)
[2019-08-15] MEDS: NACL 0.9% 1,000 ML IV SCH (14:36)
--- NOTE | 2019-08-15 15:32 | NUR ---
FREQUENT ROUNDING ON PT PT APPEARS STABLE AND IN NO APPARENT DISTRESS. ALL SAFETY MEASURES ARE IN PLACE WILL CONTINUE TO MONITOR
[2019-08-15 16:10] VITALS: BP 131/76
[2019-08-15] MEDS: MUPIROCIN CA NASAL 2% 1GM TUBE NS SCH (16:34)
[2019-08-15] MEDS: CHLORHEXADINE GLUC 2% CLOTH TP SCH (16:35)
--- NOTE | 2019-08-15 18:44 | NUR ---
FREQUENT ROUNDING ON PT PT AWAKE IN BED IVF INFUSING AT TKO. PT REFUSING TO WEAR NASAL CANULA ALL SAFETY MEASURES ARE IN PLACE WILL CONTINUE TO MONITOR.
--- NOTE | 2019-08-15 19:12 | NUR ---
ENDORSED PT TO PM RN PT APPEARS STABLE AND IN NO APPARENT DISTRESS. ALL SAFETY MEASURES ARE IN PLACE
--- NOTE | 2019-08-15 19:13 | NUR ---
REPORT RECEIVED FROM AM NURSE AT BEDSIDE. PT IN STABLE CONDITION. AAOX4. INTRODUCED SELF TO PT. BOARD UPDATED. NO COMPLAINTS OF PAIN. NO SOB. AFEBRILE. PT IS AMBULATORY. IV SITE R FA 22G RUNNING NS@20ML/HR PATENT AND INTACT. SKIN WARM, DRY, AND INTACT WITH NO OPEN WOUNDS. BED LOCKED IN LOW POSITION. CALL TIJERINA WITHIN REACH. SAFETY PRECAUTION IN PLACE. ALL NEEDS MET AT THIS TIME.
[2019-08-15 20:00] VITALS: BP 126/69
--- NOTE | 2019-08-15 20:20 | NUR ---
RECEIVED PATIENT ON ROOM AIR, PULSE OX SAT 93%. PATIENT REFUSES TO WEAR OXYGEN. SCHEDULED BREATHING TREATMENT ADMINISTERED. TOLERATED TX WELL WITHOUT ADVERSE SIDE EFFECTS. NO ACUTE RESPIRATORY DISTRESS NOTED AT THIS TIME. WILL CONTINUE TO MONITOR.
[2019-08-15] MEDS: QUEtiapine FUMARATE 100 MG TAB PO SCH (20:31)
--- NOTE | 2019-08-15 20:31 | NUR ---
COLACE, FERROUS SULFATE, KLONIPIN, SEROQUEL, VITAMIN C, AND WELLBUTRIN GIVEN PO. HEPARIN GIVEN SUBQ. PT TOLERATED WELL.
--- NOTE | 2019-08-15 22:06 | NUR ---
DAMION HUNG AND RUNNING. PT TOLERATING WELL.
[2019-08-15] MEDS: guaiFENesin DM 200/20 MG-10 ML 10 ML UDC PO PRN (22:17)
--- NOTE | 2019-08-15 22:17 | NUR ---
ROBITUSSIN GIVEN FOR COUGH. PT TOLERATED WELL.
[2019-08-15] MEDS: ACETAMINOPHEN 325 MG TAB PO PRN (23:45)
--- NOTE | 2019-08-15 23:45 | NUR ---
TYL GIVEN FOR TEMPERATURE OF 100.0. PT TOLERATED WELL.
[2019-08-16] VITALS: BP 113/65
--- NOTE | 2019-08-16 01:20 | NUR ---
PT SLEEPING COMFORTABLY BUT AROUSABLE. NO S/S OF DISTRESS NOTED. WILL CONTINUE TO MONITOR.
--- NOTE | 2019-08-16 03:05 | NUR ---
PT SLEEPING COMFORTABLY BUT AROUSABLE. NO S/S OF DISTRESS NOTED. NO COMPLAINTS OF PAIN. NO SOB. AFEBRILE. WILL CONTINUE TO MONITOR.
[2019-08-16 04:00] VITALS: BP 102/52
[2019-08-16] MEDS: PIPERACILLIN/TAZOBACTAM 2.25 GM in DEXTROSE 5% 50 ML IV SCH ×3 (04:09→16:15)
--- NOTE | 2019-08-16 04:09 | NUR ---
DAMION HUNG AND RUNNING. PT TOLERATING WELL.
[2019-08-16] MEDS: ALBUTEROL SULFATE/IPRATROPIU 3 ML SOL IH SCH ×2 (06:35→12:15)
--- NOTE | 2019-08-16 06:45 | NUR ---
PT SLEEPING COMFORTABLY BUT AROUSABLE. PT IN STABLE CONDITION.
[2019-08-16 07:03] LABS: BASOPHILS # (AUTO) 0.1 K/uL (0.00-0.22); BASOPHILS % (AUTO) 0.6 % (0.0-2.0); EOSINOPHILS # (AUTO) 0.1 K/uL (0-0.4); EOSINOPHILS % (AUTO) 0.6 % (0.0-4.0); HEMATOCRIT 31.9 % (36-52); HEMOGLOBIN 10.7 g/dL (12.0-18.0); LYMPHOCYTES # (AUTO) 1.3 K/uL (2.0-11.5); LYMPHOCYTES % (AUTO) 13.8 % (20.5-51.1); MEAN CORPUSCULAR HEMOGLOBIN 30 pg (27-31); MEAN CORPUSCULAR HGB CONC 33 g/dL (33-37); MONOCYTES # (AUTO) 0.9 K/uL (0.8-1.0); MONOCYTES % (AUTO) 9.9 % (1.7-9.3); NEUTROPHILS # (AUTO) 7.2 K/uL (1.8-7.7); NEUTROPHILS % (AUTO) 75.1 % (42.2-75.2); PLATELET COUNT (AUTO) 237 K/uL (140-450); RED CELL DISTRIBUTION WIDTH 14.7 % (11.6-13.7); WHITE BLOOD COUNT (AUTO) 9.6 K/uL (4.8-10.8)
[2019-08-16 07:06] LABS: ANION GAP 13.9 (8-16); CARBON DIOXIDE 27.8 mmol/L (21-32); CREATININE 1.2 mg/dL (0.7-1.3); POTASSIUM 3.7 mmol/L (3.5-5.1)
[2019-08-16 07:09] LABS: MAGNESIUM 1.5 mg/dL (1.8-2.4); PHOSPHORUS 3.6 mg/dL (2.5-4.9)
--- NOTE | 2019-08-16 07:15 | NUR ---
RECEIVED BEDSIDE REPORT FROM PM RN PT AWAKE IN BED ALL SAFETY MEASURES ARE IN PLACE WILL CONTINUE TO MONITOR
[2019-08-16 08:10] VITALS: BP 122/70
[2019-08-16] MEDS: ASPIRIN 81 MG TAB.CHEW PO SCH (08:12)
[2019-08-16] MEDS: HYDROcodone/APAP 7.5/325 MG 1 TAB PO PRN ×2 (08:12→15:48)
[2019-08-16] MEDS: GABAPENTIN 300 MG CAP PO SCH (08:12)
[2019-08-16] MEDS: ASCORBIC ACID 500 MG TAB PO SCH (08:13)
[2019-08-16] MEDS: DONEPEZIL 10 MG TAB PO SCH (08:13)
[2019-08-16] MEDS: LOSARTAN 50 MG TAB PO SCH (08:13)
[2019-08-16] MEDS: buPROPion 100 MG TAB PO SCH (08:13)
[2019-08-16] MEDS: FAMOTIDINE 20 MG TAB PO SCH (08:13)
[2019-08-16] MEDS: DOCUSATE SODIUM 100 MG GELCAP PO SCH (08:14)
[2019-08-16] MEDS: clonazePAM 0.5 MG TAB PO SCH (08:21)
[2019-08-16] MEDS: FERROUS SULFATE 325 MG TABEC PO SCH (08:22)
[2019-08-16] MEDS ORDERED: LEVOFLOXACIN 750 MG/D5W PREMIX 150 ML IV SCH (09:00)
[2019-08-16] MEDS ORDERED: MAGNESIUM OXIDE 400 MG TAB PO SCH (09:00)
[2019-08-16] MEDS ORDERED: LACTOBACILLUS RHAMNOSUS GG 1 EACH CAP PO SCH (09:00)
[2019-08-16] MEDS: NITROGLYCERIN 0.4 MG TAB SL PRN (09:52)
--- NOTE | 2019-08-16 09:54 | NUR ---
PT COMPLAINS OF CHEST PAIN. ASSESSED BP 135/70. PT HEART RATE 93 SR ON TELE MONITOR. ADMINISTERED SUBLINGUAL NITRO X1. REASSESSED PT IN 5 MIN PT STATED CHEST PAIN RELIEVED. INFORMED DR. POLK WILL CONTINUE TO MONITOR PT FOR NOW
--- NOTE | 2019-08-16 10:50 | NUR ---
DISCHARGE PLANNING: RECEIVED AN ORDER FOR SNF EVAL FOR PT AND IV ANTIBIOTIC MET WITH THE PATIENT AT THE BEDSIDE TO DISCUSS DC PLAN AND IS IN AGREEMENT. HE STATED HE PREFER [facility] HE HAS BEEN THERE IN THE PAST. CONTACTED [facility] AT [phone], ABLE TO SPEAK TO [facility]. SHE STATED SHE CAN TRANSFER ME TO [facility] HOWEVER THERE WAS NO ANSWER. LEFT VOICEMAIL. CM TO FOLLOW UP Addendum: 08/16/19 at 1513 by Caroline Walker ABLE TO SPEAK TO [facility] AT [phone], THE CM ASSIGNED FOR THIS PATIENT IS DOMINIC [phone]. SHADIA ALFARO PROVIDED ME OF THE LIST OF CONTRACTED FACILITIES: [facility] [phone], SPOKE TO LISA, SHE STATED THEIR ADMISSION IS IN A MEETING AT THIS TIME. SHE PROVIDED ME WITH [facility] ADMISSION'S NUMBER [phone] AND THERE FAX NUMBER IS [phone]. [facility] - [phone]. PER ADAM [facility]AP CONSULTANT, PATRICIA WATTERS IS NOT IN TODAY. HER PHONE NUMBER [phone] AND FAX NUMBER [phone] [facility] - [phone]. ABLE TO SPEAK TO [facility]. SHE PROVIDED ME WITH FAX NUMBER [phone] TO SEND REFERRAL. REFERRAL SENT TO THE ABOVE MENTIONED FACILITIES. Addendum: 08/16/19 at 1629 by Caroline Walker CM CONTACTED SHADIA ALFARO AGAIN, REGARDING OTHER SNF'S. I INFORMED HIM THAT THE SNF'S PROVIDED EARLIER WERE ALL FROM [facility]. I REQUESTED FOR SNF'S FROM AROUND THE AREA. HE STATED [facility] AND [facility]. REFERRAL SENT. [facility] AT [phone], NO ANSWER. LEFT MESSAGE. CONTACTED [facility] AT [phone], ABLE TO SPEAK TO [facility] ADMISSIONS REGARDING INQUIRY. SHE STATED THEY ARE ABLE TO ACCEPT THE PATIENT AND WILL GO TO ROOM [address] CERRATO/DR. WRIGHT. SHADIA ALFARO MADE AWARE, WILL CALL BACK FOR TRANSPORT AUTH. DR. XIAO AND PRIMARY RN SOCRATES MADE AWARE. Addendum: 08/16/19 at 1633 by Caroline Walker CM PROVIDED SHADIA ALFARO OF UNIT'S PHONE NUMBER IF TRANSPORT AUTH IS AVAILABLE. CHARGE NURSE CORINE MADE AWARE.
--- NOTE | 2019-08-16 11:34 | NUR ---
FREQUENT ROUNDING ON PT PT APPEARS STABLE AND IN NO APPARENT DISTRESS. ALL SAFETY MEASURES ARE IN PLACE. WILL CONTINUE TO MONITOR.
[2019-08-16] MEDS ORDERED: MAGNESIUM OXIDE 400 MG TAB PO ONE (11:40)
[2019-08-16] MEDS ORDERED: DEXT150S16 IV (11:41)
[2019-08-16 12:48] VITALS: BP 128/76
[2019-08-16] MEDS: NACL 0.9% 1,000 ML IV SCH (14:23)
--- NOTE | 2019-08-16 14:53 | NUR ---
08/16/19 RD INITIAL ASSESSMENT COMPLETED PLEASE REFER TO NUTRITION ASSESSMENT UNDER CARE ACTIVITY FOR ESTIMATED NUTRITIONAL NEEDS. 1. CONTINUE REGULAR DIET TOLERATED 2. HEALTH SHAKE WILL BE PROVIDED WITH MEALS 3. RD TO FOLLOW-UP 3-5 DAYS, MODERATE RISK JOSU[address] ROM[address] RD
[2019-08-16] MEDS: guaiFENesin DM 200/20 MG-10 ML 10 ML UDC PO PRN (15:45)
[2019-08-16] MEDS: MUPIROCIN CA NASAL 2% 1GM TUBE NS SCH (16:14)
[2019-08-16 16:15] VITALS: BP 143/61
[2019-08-16] MEDS: CHLORHEXADINE GLUC 2% CLOTH TP SCH (16:16)
[2019-08-16] MEDS: ACETAMINOPHEN 325 MG TAB PO PRN (17:39)
--- NOTE | 2019-08-16 17:39 | NUR ---
PT TEMP 100.5 ADMINISTERED TYLENOL PER PRN ORDERS.
--- NOTE | 2019-08-16 18:24 | NUR ---
SPOKE TO DOMINIC AND ADAL AUTH#[id number] FOR TRANSPORT.
--- NOTE | 2019-08-16 19:03 | NUR ---
called [facility] in [place] gave report to RAFAEL GOMEZ
--- NOTE | 2019-08-16 19:26 | NUR ---
ENDORSED PT TO PM RN PT IS AWARE OF TRANSFER TO [facility] REPORT IS GIVEN TO RAFAEL GOMEZ. DISCHARGE PACKET IS AT NURSING STATION. ALL SAFETY MEASURES ARE IN PLACE
--- NOTE | 2019-08-16 19:27 | NUR ---
RECEIVED ENDORSEMENT FROM SOCR[facility] MALDONADO. PT AWAKE ALERT ORIENTED X 3, FALL RISK PER ENDORSEMENT W/ FEVER EARLIER 100. 5 AND GIVEN TYLENOL AT 1739. WITH IV ON THE R FA G 22, PATENT AND INTACT. PATIENT TO BE TRANSFERRED TO [facility].
[2019-08-16 20:00] VITALS: BP 117/52
--- NOTE | 2019-08-16 20:00 | NUR ---
PT VITAL SIGNS TAKEN, FEBRILE, INFORMED EMT THAT PT HAS FEVER 100.7, AND THAT [facility] AT [facility] AWARE PER ENDORSEMENT OF [facility]. HR 85, PT HOOKED UP ON O2 AT 2 LPM VIA NC WITH O2 OF 94%.
--- NOTE | 2019-08-16 20:30 | NUR ---
EMT TO TRANSFER PT TO [facility], PLACED ON [facility]. WITH IVF SITE IN PLACE; FOR PT AND ANTIBIOTIC TX. PT FEBRILE ENDORSED TO EMT. ESCORTED OUT TO EXIT AREA
== END 2019-08-16 20:30 | DRG 177 ==
LOC: MED 17:09 → MTU 21:21
PROVIDERS: ADMIT General Practice; ATTEND General Practice
PROC: 3E0234Z Introduction of Serum, Toxoid and Vaccine into Muscle, Percutaneous Approach (ICD-10-PCS; principal; 2019-08-15)
DX: J69.0 Pneumonitis due to inhalation of food and vomit (principal); N17.0 Acute kidney failure with tubular necrosis; J96.01 Acute respiratory failure with hypoxia; E87.1 Hypo-osmolality and hyponatremia; E44.0 Moderate protein-calorie malnutrition; F31.9 Bipolar disorder, unspecified; J45.909 Unspecified asthma, uncomplicated; F20.9 Schizophrenia, unspecified; E86.0 Dehydration; E83.42 Hypomagnesemia; N18.9 Chronic kidney disease, unspecified; I12.9 Hypertensive chronic kidney disease with stage 1 through stage 4 chronic kidney disease, or unspecified chronic kidney disease; E87.6 Hypokalemia; E83.39 Other disorders of phosphorus metabolism; B96.5 Pseudomonas (aeruginosa) (mallei) (pseudomallei) as the cause of diseases classified elsewhere; B95.3 Streptococcus pneumoniae as the cause of diseases classified elsewhere; Z79.82 Long term (current) use of aspirin; Z79.899 Other long term (current) drug therapy; Z87.891 Personal history of nicotine dependence; Z22.322 Carrier or suspected carrier of Methicillin resistant Staphylococcus aureus; Z68.20 Body mass index [BMI] 20.0-20.9, adult; Z23 Encounter for immunization
CPT/HCPCS: 36415; 36600; 70450; 71045; 71250; 72170; 76604; 76770; 80048; 80053; 80305; 81003; 82803; 83036; 83605; 83690; 83735; 83880; 84100; 84443; 84484; 85025; 85610; 85730; 87040; 87070; 87081; 87086; 87186; 87205; 87804; 93005; 94640; 96365; 96367; 97110; 97112; 97116; 97161-GP; 97530; 99285; J0456; J0696; J1644; J1940; J1956; J2543; J3475; J7030; J7060; J7620; Q0092; Q0163